=== PATIENT | female | born 1945 | race Caucasian/White ===

== ENCOUNTER → 2017-11-01 | Outpatient (CLI) | payer MEDICARE ==
[2017-11-01 10:25] LABS: ABSOLUTE LYMPHOCYTES (AUTO) 1.5 10^3/uL (0.5-4.7); ABSOLUTE MONOCYTES (AUTO) 0.5 10^3/uL (0.1-1.4); ABSOLUTE NEUT (AUTO) 3.2 10^3/uL (1.7-8.2); BASOPHILS % (AUTO) 0.1 % (0-2); HEMATOCRIT 29.8 % (36.0-47.0); HEMOGLOBIN 9.9 g/dL (12.0-15.5); LYMPHOCYTES % (AUTO) 29.1 % (13-45); MEAN CORPUSCULAR HEMOGLOBIN 24.4 pg (27.0-33.4); MEAN CORPUSCULAR HGB CONC 33.3 g/dL (32.0-36.0); MEAN CORPUSCULAR VOLUME 73 fl (80-97); MONOCYTES % (AUTO) 10.2 % (3-13); PLATELET COUNT 322 10^3/uL (150-450); RED BLOOD COUNT 4.06 10^6/uL (3.72-5.28); RED CELL DISTRIBUTION WIDTH 15.6 % (11.5-14.0); SEGMENTED NEUTROPHILS % (AUTO) 60.6 % (42-78); TOTAL CELLS COUNTED % (AUTO) 100 %; WHITE BLOOD COUNT 5.3 10^3/uL (4.0-10.5)
[2017-11-01 10:57] LABS: ANION GAP 8 (5-19); BLOOD UREA NITROGEN 23 mg/dL (7-20); CALCIUM 9.4 mg/dL (8.4-10.2); CARBON DIOXIDE 27 mmol/L (22-30); CHLORIDE 100 mmol/L (98-107); GLUCOSE 158 mg/dL (75-110); IRON(TIBC) 36.5 ug/dL (37-170); POTASSIUM 4.5 mmol/L (3.6-5.0); SODIUM 134.8 mmol/L (137-145)
[2017-11-02 17:08] LABS: URINE CREATININE 46.4 mg/dL (15-278); URINE PROTEIN 138.6 mg/dL (<12)
== END ==
LOC: OD 09:39
PROVIDERS: ATTEND Internal Medicine Nephrology
DX: N18.4 Chronic kidney disease, stage 4 (severe) (principal); D50.9 Iron deficiency anemia, unspecified; E55.9 Vitamin D deficiency, unspecified; N25.81 Secondary hyperparathyroidism of renal origin
CPT/HCPCS: 36415; 80048; 82306; 82570; 82728; 83540; 83550; 83970; 84156; 85025

== ENCOUNTER → 2017-12-27 | Outpatient (CLI) | payer MEDICARE ==
[2017-12-27 16:58] LABS: ANION GAP 9 (5-19); BLOOD UREA NITROGEN 27 mg/dL (7-20); CALCIUM 9.2 mg/dL (8.4-10.2); CARBON DIOXIDE 29 mmol/L (22-30); CHLORIDE 98 mmol/L (98-107); GLUCOSE 186 mg/dL (75-110); POTASSIUM 4.2 mmol/L (3.6-5.0); SODIUM 136.1 mmol/L (137-145)
== END ==
LOC: OD 15:19
PROVIDERS: ATTEND Internal Medicine Nephrology
DX: N18.4 Chronic kidney disease, stage 4 (severe) (principal); R60.0 Localized edema
CPT/HCPCS: 36415; 80048

== ENCOUNTER → 2018-01-31 | Outpatient (CLI) | payer MEDICARE ==
[2018-01-31 16:18] LABS: ABSOLUTE LYMPHOCYTES (AUTO) 1.7 10^3/uL (0.5-4.7); ABSOLUTE MONOCYTES (AUTO) 0.5 10^3/uL (0.1-1.4); ABSOLUTE NEUT (AUTO) 3.1 10^3/uL (1.7-8.2); EOSINOPHILS % (AUTO) 0.2 % (0-6); HEMATOCRIT 30.2 % (36.0-47.0); HEMOGLOBIN 9.8 g/dL (12.0-15.5); LYMPHOCYTES % (AUTO) 31.8 % (13-45); MEAN CORPUSCULAR HEMOGLOBIN 23.7 pg (27.0-33.4); MEAN CORPUSCULAR HGB CONC 32.3 g/dL (32.0-36.0); MEAN CORPUSCULAR VOLUME 73 fl (80-97); MONOCYTES % (AUTO) 8.8 % (3-13); PLATELET COUNT 302 10^3/uL (150-450); RED BLOOD COUNT 4.12 10^6/uL (3.72-5.28); RED CELL DISTRIBUTION WIDTH 15.5 % (11.5-14.0); SEGMENTED NEUTROPHILS % (AUTO) 59.2 % (42-78); TOTAL CELLS COUNTED % (AUTO) 100 %; WHITE BLOOD COUNT 5.3 10^3/uL (4.0-10.5)
[2018-01-31 16:31] LABS: ANION GAP 14 (5-19); BLOOD UREA NITROGEN 32 mg/dL (7-20); CALCIUM 9.1 mg/dL (8.4-10.2); CARBON DIOXIDE 26 mmol/L (22-30); CHLORIDE 99 mmol/L (98-107); GLUCOSE 152 mg/dL (75-110); IRON 33.4 ug/dL (37-170); SODIUM 138.8 mmol/L (137-145)
[2018-02-01 08:37] LABS: IRON(TIBC) 33.4 ug/dL (37-170)
[2018-02-01 17:43] LABS: UR PRO/CREAT RATIO RESULT 3.7 mg/mg (0.0-0.2); URINE PROTEIN 262.5 mg/dL (<12)
== END ==
LOC: OD 15:20
PROVIDERS: ATTEND Internal Medicine Nephrology
DX: N18.4 Chronic kidney disease, stage 4 (severe) (principal); N25.81 Secondary hyperparathyroidism of renal origin; E55.9 Vitamin D deficiency, unspecified; D50.9 Iron deficiency anemia, unspecified
CPT/HCPCS: 36415; 80048; 82306; 82570; 82728; 83540; 83550; 83970; 84156; 85025

== ENCOUNTER → 2018-05-18 | Outpatient (CLI) | payer MEDICARE ==
[2018-05-18 13:58] LABS: ALBUMIN 3.7 g/dL (3.5-5.0); ANION GAP 12 (5-19); BLOOD UREA NITROGEN 45 mg/dL (7-20); CALCIUM 9.1 mg/dL (8.4-10.2); CARBON DIOXIDE 28 mmol/L (22-30); CHLORIDE 95 mmol/L (98-107); GLUCOSE 189 mg/dL (75-110); SODIUM 134.8 mmol/L (137-145)
[2018-05-19 11:40] LABS: CREATININE URINE 46.7 mg/dL (Not Estab.)
== END ==
LOC: OD 12:16
PROVIDERS: ATTEND Internal Medicine Nephrology
DX: N18.4 Chronic kidney disease, stage 4 (severe) (principal); E11.22 Type 2 diabetes mellitus with diabetic chronic kidney disease; E11.21 Type 2 diabetes mellitus with diabetic nephropathy
CPT/HCPCS: 36415; 80048; 82040; 82043; 82570

== ENCOUNTER 2018-07-30 00:43 | Emergency (ER) | payer MEDICARE ==
--- NOTE | 2018-07-30 01:19 | ER Document Report ---
ED General - General Chief Complaint: High Blood Pressure Stated Complaint: BLOOD PRESSURE ISSUES Time Seen by Provider: 07/30/18 01:16 Notes: Patient is a pleasant 73-year-old female presents with complaint of high blood pressure. She has no symptoms associate with a high blood pressure. No headache. No chest pain. No shortness of breath. No focal weakness or numbness. Patient says he went to the eye doctor today. They gave her drops to dilate her eyes. At the end of her visit they checked her blood pressure and realized it was high told her to come to the ER for blood pressure remained high tonight. Tonight she checked her blood pressure and systolically was in the 200s and therefore she came to the ER. Now her blood pressure is down to the 170s systolically. She has no other complaints at this time. She currently is on losartan. She also takes furosemide. She also takes atenolol and diltiazem. She says typically her blood pressures run systolically in the 140s and diastolically in the 70s. TRAVEL OUTSIDE OF THE [place] IN LAST 30 DAYS: No - Related Data Allergies/Adverse Reactions: epinephrine [Epinephrine] Allergy (Severe, Verified 05/14/13 12:19) SEVERE CHEST PAIN Sulfa (Sulfonamide Antibiotics) Allergy (Unknown, Verified 05/14/13 12:19) CHILDHOOD ciprofloxacin [From Cipro] Allergy (Verified 05/14/13 12:19) TENDONITIS levofloxacin [From Levaquin] Allergy (Verified 05/14/13 12:19) TENDONITIS BILAT LEGS Past Medical History - Social History Smoking Status: Never Smoker Frequency of alcohol use: None Drug Abuse: None Family History: Reviewed & Not Pertinent - Past Medical History Cardiac Medical History: Reports: Hx Hypertension - MEDICATION Denies: Hx Heart Attack Pulmonary Medical History: Denies: Hx Asthma Neurological Medical History: Denies: Hx Cerebrovascular Accident, Hx Seizures Endocrine Medical History: Reports: Hx Diabetes Mellitus Type 2 GI Medical History: Denies: Hx Hepatitis, Hx Hiatal Hernia, Hx Ulcer Infectious Medical History: Denies: Hx Hepatitis Past Surgical History: Reports: Hx Orthopedic Surgery - left wrist. Denies: Hx Mastectomy, Hx Open Heart Surgery, Hx Pacemaker - Immunizations Hx Diphtheria, Pertussis, Tetanus Vaccination: No - unknown Review of Systems - Review of Systems Notes: My Normal Review Basic REVIEW OF SYSTEMS: CONSTITUTIONAL : Denies fever, chills, or sweats. Denies recent illness. EENT: Denies eye, ear, throat, or mouth pain or symptoms. Denies nasal or sinus congestion. CARDIOVASCULAR: Denies chest pain. RESPIRATORY: Denies cough, cold, or chest congestion. Denies shortness of breath, difficulty breathing, or wheezing. GASTROINTESTINAL: Denies abdominal pain. Denies nausea, vomiting, or diarrhea. MUSCULOSKELETAL: Denies neck or back pain or joint pain or swelling. SKIN: Denies rash or skin lesions. NEUROLOGICAL: Denies altered mental status or loss of consciousness. Denies headache. Denies weakness or paralysis or loss of use of either side. Denies problems with gait or speech. Denies sensory or motor loss. ALL OTHER SYSTEMS REVIEWED AND NEGATIVE. Physical Exam - Vital signs Vitals: Temp Pulse Resp BP Pulse Ox 97.5 F 52 L 18 181/77 H 99 07/30/18 00:43 07/30/18 00:43 07/30/18 00:43 07/30/18 00:43 07/30/18 00:43 - Notes Notes: General Appearance: Well nourished, alert, cooperative, no acute distress, no obvious discomfort. Well-appearing. Vitals: reviewed, See vital signs table. Head: no swelling or tenderness to the head Eyes: PERRL, EOMI, Conjuctiva clear Lungs: No wheezing, No rales, No rhonci, No accessory muscle use, good air exchange bilaterally. Heart: Normal rate, Regular rythm, No murmur, no rub Extremities: strength 5/5 in all extremities, good pulses in all extremities, no swelling or tenderness in the extremities, plus pedal edema. Skin: warm, dry, appropriate color, no rash Neuro: speech clear, oriented x 3, normal affect, responds appropriately to questions. Cranial nerves II through XII are intact. Distal sensation intact. Patient moves all extremities without difficulty. Course - Re-evaluation Re-evalutation: 07/30/18 01:39 She is blood pressure is improving. I suspect that her increased blood pressure is related to the dilating eyedrops that she received at the eye doctor 's office. She is completely asymptomatic with her hypertension. I feel she is safe to be discharged home. She has a follow-up appointment with her physician on Wednesday. Encouraged her return to ER if she has recurrent worsening high blood pressure, any headache, any chest pain, any difficulty breathing, or any weakness or numbness in her extremities. Patient agrees with plan will be discharged home. Dictation of this chart was performed using voice recognition software; therefore, there may be some unintended grammatical errors. - Vital Signs Vital signs: Temp Pulse Resp BP Pulse Ox 97.5 F 48 L 18 162/78 H 100 07/30/18 00:43 07/30/18 01:26 07/30/18 01:26 07/30/18 01:26 07/30/18 01:26 Discharge - Discharge Clinical Impression: High blood pressure Qualifiers: Hypertension type: unspecified Qualified Code(s): I10 - Essential (primary) hypertension Condition: Good Disposition: HOME, SELF-CARE Additional Instructions: I suspect the increase in your blood pressure today is related to the dilating drops you were given. Your blood pressure should continue to improve over the next 8 hours. Please return to [facility] ER immediately if you develop chest pain, difficulty breathing, severe headache, or feel unwell. Referrals: BENITO DOUGLAS FNP [Primary Care Provider] - 08/01/18
[2018-07-30 01:26] VITALS: BP 162/78
== END 2018-07-30 01:26 | disposition home or self-care (01) ==
LOC: ER 00:43
DX: I10 Essential (primary) hypertension (principal); Z88.2 Allergy status to sulfonamides; Z88.3 Allergy status to other anti-infective agents; E11.9 Type 2 diabetes mellitus without complications
CPT/HCPCS: 99284

== ENCOUNTER 2018-10-04 11:49 | Inpatient (IN) | payer MEDICARE ==
--- NOTE | 2018-10-04 12:57 | ER Document Report ---
ED Medical Screen (RME) - General Chief Complaint: Shortness Of Breath Stated Complaint: SHORTNESS OF BREATH Time Seen by Provider: 10/04/18 12:50 Primary Care Provider: BENITO DOUGLAS FNP [Primary Care Provider] - Follow up as needed Mode of Arrival: Wheelchair Information source: Patient Notes: This is a 73-year-old female with a history of diabetes, hypertension, chronic kidney disease who presents to the emergency room with shortness of breath (worse with lying down), increasing right lower extremity swelling. TRAVEL OUTSIDE OF THE [place] IN LAST 30 DAYS: No - Related Data Allergies/Adverse Reactions: epinephrine [Epinephrine] Allergy (Severe, Verified 10/04/18 11:50) SEVERE CHEST PAIN Sulfa (Sulfonamide Antibiotics) Allergy (Unknown, Verified 10/04/18 11:50) CHILDHOOD ciprofloxacin [From Cipro] Allergy (Verified 10/04/18 11:50) TENDONITIS levofloxacin [From Levaquin] Allergy (Verified 10/04/18 11:50) TENDONITIS BILAT LEGS Past Medical History - Past Medical History Cardiac Medical History: Reports: Hx Hypertension - MEDICATION Denies: Hx Heart Attack Pulmonary Medical History: Denies: Hx Asthma Neurological Medical History: Denies: Hx Cerebrovascular Accident, Hx Seizures Endocrine Medical History: Reports: Hx Diabetes Mellitus Type 2 Renal/ Medical History: Denies: Hx Peritoneal Dialysis GI Medical History: Denies: Hx Hepatitis, Hx Hiatal Hernia, Hx Ulcer Infectious Medical History: Denies: Hx Hepatitis Past Surgical History: Reports: Hx Orthopedic Surgery - left wrist. Denies: Hx Mastectomy, Hx Open Heart Surgery, Hx Pacemaker - Immunizations Hx Diphtheria, Pertussis, Tetanus Vaccination: No - unknown Physical Exam - Vital signs Vitals: Temp Pulse Resp BP Pulse Ox 97.8 F 51 L 20 199/77 H 96 10/04/18 12:14 10/04/18 12:14 10/04/18 12:14 10/04/18 12:14 10/04/18 12:14 Course - Vital Signs Vital signs: Temp Pulse Resp BP Pulse Ox 97.8 F 51 L 20 199/77 H 96 10/04/18 12:14 10/04/18 12:14 10/04/18 12:14 10/04/18 12:14 10/04/18 12:14 Doctor's Discharge - Discharge Referrals: STELLA,BENITO, MORTAR MAN [Primary Care Provider] - Follow up as needed
[2018-10-04 13:29] LABS: ABSOLUTE LYMPHOCYTES (AUTO) 0.9 10^3/uL (0.5-4.7); ABSOLUTE MONOCYTES (AUTO) 0.4 10^3/uL (0.1-1.4); ABSOLUTE NEUT (AUTO) 3.4 10^3/uL (1.7-8.2); BASOPHILS % (AUTO) 0.2 % (0-2); HEMOGLOBIN 9.9 g/dL (12.0-15.5); LYMPHOCYTES % (AUTO) 19.3 % (13-45); MEAN CORPUSCULAR HEMOGLOBIN 25.6 pg (27.0-33.4); MEAN CORPUSCULAR HGB CONC 33.1 g/dL (32.0-36.0); MEAN CORPUSCULAR VOLUME 77 fl (80-97); MONOCYTES % (AUTO) 8.5 % (3-13); PLATELET COUNT 334 10^3/uL (150-450); RED BLOOD COUNT 3.87 10^6/uL (3.72-5.28); RED CELL DISTRIBUTION WIDTH 16.2 % (11.5-14.0); TOTAL CELLS COUNTED % (AUTO) 100 %; WHITE BLOOD COUNT 4.7 10^3/uL (4.0-10.5)
--- NOTE | 2018-10-04 14:17 | RADIOLOGY REPORT (SQ) ---
EXAM DESCRIPTION: CHEST SINGLE VIEW COMPLETED DATE/TIME: 10/04/2018 2:07 pm REASON FOR STUDY: sob COMPARISON: 09/05/2016 EXAM PARAMETERS: NUMBER OF VIEWS: One view. TECHNIQUE: Single frontal radiographic view of the chest acquired. RADIATION DOSE: NA LIMITATIONS: None. FINDINGS: LUNGS AND PLEURA: Bilateral pleural effusions. Basilar opacities. MEDIASTINUM AND HILAR STRUCTURES: No masses. Contour normal. HEART AND VASCULAR STRUCTURES: Heart enlarged. Vascular congestion. BONES: No acute findings. HARDWARE: None in the chest. OTHER: No other significant finding. IMPRESSION: Vascular congestion. Bilateral pleural effusions. TECHNICAL DOCUMENTATION: JOB ID: [id number] [employer]- All Rights Reserved Reading location - IP/workstation name: [email or web address]
--- NOTE | 2018-10-04 14:40 | ER Document Report ---
ED General - General Chief Complaint: Shortness Of Breath Stated Complaint: SHORTNESS OF BREATH Time Seen by Provider: 10/04/18 12:50 Mode of Arrival: Wheelchair Notes: This is a 73-year-old female to the emergency department chief complaint of lower extremity edema mostly on the right lower extremity as well as increased shortness of breath. Patient followed by Dr. Bates with nephrology. Has diabetes, hypertension. Has renal failure. Seems to be getting worse. Is recently increased her dosages of Lasix but still has shortness of breath and worsening edema to the right lower extremities. Denies any other major symptoms at this time. No pain. TRAVEL OUTSIDE OF THE [place] IN LAST 30 DAYS: No - HPI Onset/Duration: Gradual Quality of pain: No pain Severity: Moderate Associated symptoms: Leg swelling, Shortness of breath Exacerbated by: Supine, Movement, Walking Relieved by: Denies - Related Data Allergies/Adverse Reactions: Sulfa (Sulfonamide Antibiotics) Allergy (Unknown, Verified 10/04/18 11:50) CHILDHOOD ciprofloxacin [From Cipro] Allergy (Verified 10/04/18 11:50) TENDONITIS levofloxacin [From Levaquin] Allergy (Verified 10/04/18 11:50) TENDONITIS BILAT LEGS Past Medical History - General Information source: Patient - Social History Smoking Status: Former Smoker Drug Abuse: None Lives with: Alone Family History: Reviewed & Not Pertinent Patient has suicidal ideation: No Patient has homicidal ideation: No - Past Medical History Cardiac Medical History: Reports: Hx Hypertension - MEDICATION Denies: Hx Heart Attack Pulmonary Medical History: Denies: Hx Asthma Neurological Medical History: Denies: Hx Cerebrovascular Accident, Hx Seizures Endocrine Medical History: Reports: Hx Diabetes Mellitus Type 2 Renal/ Medical History: Denies: Hx Peritoneal Dialysis GI Medical History: Denies: Hx Hepatitis, Hx Hiatal Hernia, Hx Ulcer Infectious Medical History: Denies: Hx Hepatitis Past Surgical History: Reports: Hx Orthopedic Surgery - left wrist. Denies: Hx Mastectomy, Hx Open Heart Surgery, Hx Pacemaker - Immunizations Hx Diphtheria, Pertussis, Tetanus Vaccination: No - unknown Review of Systems - Review of Systems Notes: Constitutional: denies: Chills, Diaphoresis, Fever, Malaise, Weakness EENT: denies: Eye discharge, Blurred vision, Tearing, Double vision, Nose congestion, Nose discharge, Throat swelling, Mouth pain Cardiovascular: denies: Palpitations, Heart racing, Orthopnea, Dyspnea, Chest pain Respiratory: denies: Cough, Hurts to breathe, Wheezing,. Complains of shortness of breath Gastrointestinal: denies: Abdominal pain, Diarrhea, Nausea, Vomiting, Black stools, bright red blood in stool Genitourinary: denies: Burning, Dysuria, Discharge, Frequency, Flank pain, Hematuria Musculoskeletal: denies: Joint pain, Joint swelling, Muscle pain, Muscle stiffness, back pain. Complains of lower extremity edema Hematologic/Lymphatic: denies: Anemia, Easy bleeding, Easy bruising, Blood clots Neurological/Psychological: denies: Confusion, Dementia, Depression, Loss of consciousness Skin: No lesions, no masses, no skin breakdown, no abscesses Physical Exam - Vital signs Vitals: Temp Pulse Resp BP Pulse Ox 97.8 F 51 L 20 199/77 H 96 10/04/18 12:14 10/04/18 12:14 10/04/18 12:14 10/04/18 12:14 10/04/18 12:14 Interpretation: Normal - General General appearance: Appears well, Alert - HEENT Head: Normocephalic, Atraumatic Eyes: Normal Pupils: PERRL - Respiratory Respiratory status: No respiratory distress Chest status: Nontender Breath sounds: Normal Chest palpation: Normal - Cardiovascular Rhythm: Regular Heart sounds: Normal auscultation Murmur: No - Abdominal Inspection: Normal Distension: No distension Bowel sounds: Normal Tenderness: Nontender Organomegaly: No organomegaly - Back Back: Normal, Nontender - Extremities General upper extremity: Normal inspection, Nontender, Normal color, Normal ROM, Normal temperature General lower extremity: Normal inspection, Nontender, Edema, Normal color, Normal ROM, Normal temperature, Normal weight bearing. No: Dannie's sign - Neurological Neuro grossly intact: Yes Cognition: Normal Orientation: AAOx4 Emilee Coma Scale Eye Opening: Spontaneous Hamilton Coma Scale Verbal: Oriented Emilee Coma Scale Motor: Obeys Commands Hamilton Coma Scale Total: 15 Speech: Normal Motor strength normal: LUE, RUE, LLE, RLE Sensory: Normal - Psychological Associated symptoms: Normal affect, Normal mood - Skin Skin Temperature: Warm Skin Moisture: Dry Skin Color: Normal Course - Re-evaluation Re-evalutation: 10/04/18 22:21 Patient has lower extremity edema, malignant hypertension and worsening renal failure. Patient needs to be admitted for this at this time. Will consult with hospitalist for admission. Of note patient does have slightly elevated cardiac troponin but worsening renal failure. Patient denies any chest pain. Patient will need to be observed at least for that as well with repeat troponins. 10/04/18 22:22 - Vital Signs Vital signs: Temp Pulse Resp BP Pulse Ox 97.6 F 51 L 16 201/83 H 96 10/04/18 20:01 10/04/18 12:14 10/04/18 20:31 10/04/18 20:31 10/04/18 20:31 - Laboratory Result Diagrams: 10/04/18 13:10 10/04/18 14:15 Laboratory results interpreted by me: 10/04/18 10/04/18 13:10 14:15 Hgb 9.9 L Hct 30.0 L MCV 77 L MCH 25.6 L RDW 16.2 H Sodium 133.6 L Potassium 3.5 L Chloride 96 L BUN 44 H Creatinine 3.16 H Est GFR ( Amer) 18 L Est GFR (Non-Af Amer) 14 L Glucose 187 H - EKG Interpretation by Nm EKG shows normal: Sinus rhythm, [place], Intervals, QRS Complexes, ST-T Waves Voltage: Consistant with [facility] Critical Care Note - Critical Care Note Total time excluding time spent on procedures (mins): 35 Comments: Malignant hypertension, elevated cardiac troponin, renal failure Discharge - Discharge Clinical Impression: Unilateral edema of lower extremity, Hypertensive emergency Acute on chronic renal failure Qualifiers: Acute renal failure type: unspecified Chronic kidney disease stage: unspecified stage Qualified Code(s): N17.9 - Acute kidney failure, unspecified Condition: Good Disposition: ADMITTED INPATIENT Admitting Provider: Hospitalist - [facility] Admitted: Telemetry
[2018-10-04 14:42] LABS: ALANINE AMINOTRANSFERASE 15 U/L (9-52); ALKALINE PHOSPHATASE 89 U/L (38-126); ANION GAP 10 (5-19); ASPARTATE AMINO TRANSFERASE 19 U/L (14-36); BILIRUBIN,DIRECT 0.4 mg/dL (0.0-0.4); BILIRUBIN,TOTAL 0.7 mg/dL (0.2-1.3); BLOOD UREA NITROGEN 44 mg/dL (7-20); CARBON DIOXIDE 28 mmol/L (22-30); CHLORIDE 96 mmol/L (98-107); CREATINE KINASE 101 U/L (30-135); GLUCOSE 187 mg/dL (75-110); POTASSIUM 3.5 mmol/L (3.6-5.0); SODIUM 133.6 mmol/L (137-145); TOTAL PROTEIN 7.1 g/dL (6.3-8.2)
[2018-10-04 15:14] LABS: CREATINE KINASE MB 1.61 ng/mL (<4.55)
[2018-10-04 15:16] LABS: TROPONIN I 0.047 ng/mL
--- NOTE | 2018-10-04 15:36 | RADIOLOGY REPORT (SQ) ---
EXAM DESCRIPTION: VENOUS UNILATERAL LOWER COMPLETED DATE/TIME: 10/04/2018 3:24 pm REASON FOR STUDY: rle swelling COMPARISON: None. TECHNIQUE: Dynamic and static wiley scale and color images acquired of the right leg venous system. S elected spectral images acquired with additional compression and augmentation maneuvers. The contrala teral common femoral vein and saphenofemoral junction were also imaged. Images stored on PACS. LIMITATIONS: None. FINDINGS: COMMON FEMORAL: Normal phasicity, compression and augmentation. No visualized echogenic ma terial on wiley scale. No defects on color images. FEMORAL: Normal compression and augmentation. No visualized echogenic material on wiley scale. No defe cts on color images. POPLITEAL: Normal compression, augmentation. No visualized echogenic material on wiley scale. No defec ts on color images. CALF VESSELS: Normal compression, augmentation. No visualized echogenic material on wiley scale. No de fects on color images. GSV and SSV: Normal compression, augmentation. No visualized echogenic material on wiley scale. No def ects on color images. ANY DEEP VENOUS INSUFFICIENCY: Not evaluated. ANY EVIDENCE OF POPLITEAL CYST: No. OTHER: No other significant finding. CONTRALATERAL COMMON FEMORAL VEIN AND SAPHENOFEMORAL JUNCTION: Normal phasicity, compression and augmentation. No visualized echogenic material on wiley scale. No de fects on color images. IMPRESSION: NO EVIDENCE DVT OR SVT IN THE RIGHT LEG. TECHNICAL DOCUMENTATION: JOB ID: [id number] [employer]- All Rights Reserved Reading location - IP/workstation name: [email or web address]
[2018-10-04] MEDS ORDERED: FUROSEMIDE INJ/PF 20 MG/2 ML SDV IV ONE (15:46)
[2018-10-04] MEDS ORDERED: NORMAL SALINE 1000 ML 1,000 ML IV PRN (18:15)
[2018-10-04] MEDS ORDERED: ACETAMINOPHEN 325 MG TABLET PO PRN (18:15)
[2018-10-04] MEDS ORDERED: ONDANSETRON HCL INJ/PF 4 MG/2 ML SDV IV PRN (18:15)
[2018-10-04] MEDS ORDERED: IPRATROPIUM/ALBUTEROL 0.5-2.5 MG/3 ML AMPUL NEB PRN (18:15)
[2018-10-04] MEDS ORDERED: GLUCAGON,HUMAN RECOMB 1 MG INJ IM PRN (18:36)
[2018-10-04] MEDS ORDERED: DEXTROSE 50%-WATER 25 GM/50 ML DISP.SYRIN IV PRN ×2 (18:36)
[2018-10-04] MEDS ORDERED: DEXTROSE 40% GEL 15 GM TUBE PO PRN ×2 (18:36)
--- NOTE | 2018-10-04 18:37 | PDOC H&P ---
History of Present Illness Admission Date/PCP: 10/04/18 16:32 SRINIVASA BROWER History of Present Illness: ARCHANA QUINN is a 73 year old female with a past medical history of hyper tension, diabetes type 2, chronic anemia, who presented to the ED complaining of shortness of breath and lower extremity swelling. She is not a very good historian but son and daughter in the room did feel in for some of her information. Patient states for the last few days she has been getting pr ogressively short of breath and also noticed some swelling in her lower extremity. Patient states she does not have a history of heart failure and she was not sure why her legs are getting swollen. She states that sometimes she does get short of breath when she lays down versus sitting up. She cannot admit or deny whether she coughs more with laying down. She denies any recent long trips in the car or plane. She denies any calf pain, chest pain, abdominal pain, nausea/vomiting or dizziness. She states that she takes all her medicines on time and has not missed any doses. She denies any excessive intake of water or salt intake. Although family states that she does like eating [employer] and salty food. She does take Lasix at home she tells me about 40 mg daily and she believes this is due to her lower extremity swelling from the past. She denies any history of heart failure. She does have a history of renal failure and follows with Dr. Bates Past Medical History Cardiac Medical History: Reports: Hypertension - MEDICATION Denies: Myocardial Infarction Pulmonary Medical History: Denies: Asthma Neurological Medical History: Denies: Seizures Endocrine Medical History: Reports: Diabetes Mellitus Type 2 GI Medical History: Denies: Hepatitis, Hiatal Hernia Hematology: Reports: Anemia - DURING MENOPAUSE Denies: Sickle Cell Disease Past Surgical History Past Surgical History: Reports: Orthopedic Surgery - left wrist Denies: Amputation, Mastectomy, Pacemaker Social History Information Source: Patient, Relative - Son and daughter in the room Smoking Status: Never Smoker Frequency of Alcohol Use: None Hx Recreational Drug Use: No Drugs: None Hx Prescription Drug Abuse: No - Advance Directive Resuscitation Status: Full Code Family History Family History: Reviewed & Not Pertinent Parental Family History Reviewed: Yes Children Family History Reviewed: Unknown Sibling(s) Family History Reviewed.: Unknown Medication/Allergy Home Medications: Aspirin [Ecotrin 325 mg EC Tablet] 325 mg PO DAILY 10/04/18 Atenolol [Tenormin] 25 mg PO DAILY 10/04/18 Calcifediol [Rayaldee] 30 mg PO QHS 10/04/18 Diltiazem HCl [Diltiazem 24Hr ER] 300 mg PO QHS 10/04/18 Ferrous Sulfate [Feosol 325 mg Tablet] 325 mg PO DAILY 10/04/18 Furosemide [Lasix 40 mg Tablet] 40 mg PO .1 HOUR PC AM MEDS 10/04/18 Insulin Aspart [Novolog Flexpen] 0 unit SQ .SLIDING SCALE 10/04/18 Insulin Glargine,Hum.rec.anlog [Lantus Insulin 100 Unit/mL] 14 units SQ QHS 10/04/18 Levothyroxine Sodium [Synthroid] 137 mcg PO Q6AM 10/04/18 Metformin HCl [Glucophage 500 mg Tablet] 500 mg PO DAILY 10/04/18 Telmisartan/Hydrochlorothiazid [Telmisartan-Hctz 80-25 mg Tab] 1 tab PO DAILY 10/04/18 Allergies/Adverse Reactions: Sulfa (Sulfonamide Antibiotics) Allergy (Unknown, Verified 10/04/18 11:50) CHILDHOOD ciprofloxacin [From Cipro] Allergy (Verified 10/04/18 11:50) TENDONITIS levofloxacin [From Levaquin] Allergy (Verified 10/04/18 11:50) TENDONITIS BILAT LEGS Review of Systems All systems: reviewed and no additional remarkable complaints except as stated Constitutional: ABSENT: chills, fever(s) Eyes: ABSENT: visual disturbances Ears: ABSENT: hearing changes Cardiovascular: PRESENT: edema - Bilateral lower extremity right greater than left. ABSENT: chest pain Respiratory: ABSENT: cough, dyspnea Gastrointestinal: ABSENT: abdominal pain, nausea, vomiting Genitourinary: ABSENT: dysuria Neurological: ABSENT: focal weakness, syncope, tremor(s) Endocrine: ABSENT: polyphagia, polyuria Hematologic/Lymphatic: ABSENT: easy bruising Physical Exam Vital Signs: Temp Pulse Resp BP Pulse Ox 97.8 F 51 L 15 213/100 H 100 10/04/18 12:14 10/04/18 12:14 10/04/18 16:01 10/04/18 16:01 10/04/18 16:01 Intake & Output 10/03/18 10/04/18 10/05/18 06:59 06:59 06:59 Weight 203 lb 4.259 oz General appearance: PRESENT: no acute distress Head exam: PRESENT: atraumatic, normocephalic Eye exam: PRESENT: EOMI. ABSENT: conjunctival injection, scleral icterus Ear exam: PRESENT: normal external ear exam Mouth exam: PRESENT: tongue midline Neck exam: ABSENT: tracheal deviation Respiratory exam: PRESENT: clear to auscultation lalitha, symmetrical Cardiovascular exam: PRESENT: +S1, +S2 Pulses: PRESENT: +2 pedal pulses bilateral GI/Abdominal exam: PRESENT: normal bowel sounds, soft. ABSENT: tenderness Extremities exam: PRESENT: other - Bilateral lower extremity edema right greater than left-2-3+ mostly pedal up to mid mackenzie Neurological exam: PRESENT: alert, awake, oriented to person, oriented to place, oriented to time, oriented to situation, CN II-XII grossly intact Skin exam: PRESENT: dry, warm Results Laboratory Results: 10/04/18 13:10 10/04/18 14:15 10/04/18 10/04/18 10/04/18 13:10 13:10 14:15 WBC 4.7 RBC 3.87 Hgb 9.9 L Hct 30.0 L MCV 77 L MCH 25.6 L MCHC 33.1 RDW 16.2 H Plt Count 334 Seg Neutrophils % 72.0 Lymphocytes % 19.3 Monocytes % 8.5 Eosinophils % 0.0 Basophils % 0.2 Absolute Neutrophils 3.4 Absolute Lymphocytes 0.9 Absolute Monocytes 0.4 Absolute Eosinophils 0.0 Absolute Basophils 0.0 Sodium Cancelled 133.6 L Potassium Cancelled 3.5 L Chloride Cancelled 96 L Carbon Dioxide Cancelled 28 Anion Gap Cancelled 10 BUN Cancelled 44 H Creatinine Cancelled 3.16 H Est GFR ( Amer) Cancelled 18 L Est GFR (Non-Af Amer) Cancelled 14 L Glucose Cancelled 187 H Calcium Cancelled 9.0 Total Bilirubin Cancelled 0.7 AST Cancelled 19 ALT Cancelled 15 Alkaline Phosphatase Cancelled 89 Total Protein Cancelled 7.1 Albumin Cancelled 4.0 10/04/18 10/04/18 10/04/18 13:10 13:10 14:15 Creatine Kinase Cancelled 101 CK-MB (CK-2) Cancelled Troponin I Cancelled 10/04/18 14:26 Creatine Kinase CK-MB (CK-2) 1.61 Troponin I 0.047 Impressions: Chest X-Ray 10/04/18 12:56 IMPRESSION: Vascular congestion. Bilateral pleural effusions. Venous Doppler Study 10/04/18 12:56 IMPRESSION: NO EVIDENCE DVT OR SVT IN THE RIGHT LEG. Assessment & Plan - Diagnosis (1) Hypertensive emergency Is this a current diagnosis for this admission?: Yes Plan: In the ED he was found to have systolic blood pressure greater than 210. I have given her 1 dose of hydralazine IV 10 mg at this time. We will continue with her home medications once med reconciliation is done. Patient tells me that recently her doctor started her on hydralazine 25 mg twice daily for uncontrolled hypertension but she has not started the medicine yet. Depending on what medication patient is on at home I may choose to continue this same regimen of hydralazine 25 mg twice daily. At this time she is only on hydralazine IV as needed for systolic blood pressure greater than 160. We will try to lower her blood pressure slowly no more than 25% of the time. Fortunately she is not having any symptoms of chest pain, headaches, blurry vision or dizziness. She does have some shortness of breath but that could be related to heart failure which we are still to evaluate. (2) Bilateral lower extremity edema Is this a current diagnosis for this admission?: Yes Plan: Right extremity worse than left extremity. Unclear as to the cause although she is on Lasix at home. She does not know if he had a echocardiogram in the recent year but tells me she has had a long time ago. She tells me she does not have a history of heart failure. Will get echocardiogram at this time. ER did give her Lasix 20 mg IV at this time. We will continue home meds of Lasix 40 mg daily once the med reconciliation is done. Ultrasound of the lower extremity were already done in the ED and had shown no signs of DVT or SVT. (3) Hypertension Is this a current diagnosis for this admission?: Yes Plan: Med reconciliation is not done yet and I am still awaiting. See plan for hypertensive emergency. (4) Diabetes mellitus type 2 in nonobese Is this a current diagnosis for this admission?: Yes Plan: She is on Lantus and NovoLog at home. She tells me that she is on Lantus 14-20 units at night. We will start her on 14 units and put on sliding scale. We will check her A1c levels in the morning. (5) Acute on chronic renal failure Qualifiers: Acute renal failure type: unspecified Chronic kidney disease stage: unspecified stage Qualified Code(s): N17.9 - Acute kidney failure, unspecified; N18.9 - Chronic kidney disease, unspecified Is this a current diagnosis for this admission?: Yes Plan: Difficult to tell what her baseline creatinine is but today it is greater than 3. I have consulted nephrology as she follows with them outpatient. I will give her gentle hydration at 50 cc an hour with IV fluids and monitor her creatinine with repeat blood work. I do not want to give her too much fluid as she may have heart failure and this may exacerbate it. (6) Dyslipidemia Is this a current diagnosis for this admission?: Yes Plan: Noted (7) Chronic anemia Is this a current diagnosis for this admission?: Yes Plan: Hemoglobin is 9.9 at this time. Looking back at her past results she seems to be around 9-10 hemoglobin chronically. Monitor for bleed. Transfuse for hemoglobin less than 7 since she does not have a history of coronary artery disease that I know of. (8) Hyponatremia Is this a current diagnosis for this admission?: Yes Plan: Started on gentle IV hydration, most likely due to dehydration, will monitor for now. (9) Hypokalemia Is this a current diagnosis for this admission?: Yes Plan: We will replete as needed-we will give her 40MEQ potassium now - Time Time Spent: 50 to 70 Minutes - Inpatient Certification Based on my medical assessment, after consideration of the patient's comorbidities, presenting symptoms, or acuity I expect that the services needed warrant INPATIENT care.: Yes I certify that my determination is in accordance with my understanding of Medicare's requirements for reasonable and necessary INPATIENT services [42 CFR 412.3e].: Yes Medical Necessity: Significant Comorbidiites Make Outpatient Treatment Too Risky, Need Close Monitoring Due to Risk of Patient Decompensation, Need For Continuous Telemetry Monitoring, Risk of Complication if Not Cared For in Hospital
[2018-10-04] MEDS ORDERED: HYDRALAZINE HCL INJ/PF 20 MG/1 ML SDV IV ONE (18:45)
[2018-10-04] MEDS ORDERED: POTASSIUM CHLORIDE 10 MEQ CAPSULE.ER PO ONE (19:15)
--- NOTE | 2018-10-04 19:34 | EKG REPORT ---
SEVERITY:- ABNORMAL ECG - SINUS RHYTHM NONSPECIFIC INTRAVENTRICULAR CONDUCTION DELAY PROBABLE LVH WITH SECONDARY REPOL ABNRM : Confirmed by: Nani Medina MD 04-Oct-2018 19:33:41
[2018-10-04] MEDS ORDERED: INSULIN GLARGINE,HUM.REC.ANLOG 300 UNIT/3 ML INSULN.PEN SUBCUT SCH (22:00)
[2018-10-05] MEDS: HEPARIN SOD (PORCINE) 5,000 UNIT/ML 1 ML SYRINGE SUBCUT SCH ×4 (00:53→23:28)
[2018-10-05] MEDS: FAMOTIDINE 20 MG TABLET PO SCH ×3 (00:54→23:19)
[2018-10-05] MEDS: HYDRALAZINE HCL INJ/PF 20 MG/1 ML SDV IV PRN ×3 (00:55→18:40)
[2018-10-05 02:35] LABS: ABSOLUTE LYMPHOCYTES (AUTO) 0.8 10^3/uL (0.5-4.7); ABSOLUTE MONOCYTES (AUTO) 0.4 10^3/uL (0.1-1.4); ABSOLUTE NEUT (AUTO) 5.3 10^3/uL (1.7-8.2); BASOPHILS % (AUTO) 0.1 % (0-2); HEMATOCRIT 29.3 % (36.0-47.0); HEMOGLOBIN 9.7 g/dL (12.0-15.5); LYMPHOCYTES % (AUTO) 11.6 % (13-45); MEAN CORPUSCULAR HEMOGLOBIN 25.5 pg (27.0-33.4); MEAN CORPUSCULAR VOLUME 77 fl (80-97); MONOCYTES % (AUTO) 6.5 % (3-13); PLATELET COUNT 286 10^3/uL (150-450); RED CELL DISTRIBUTION WIDTH 16.5 % (11.5-14.0); SEGMENTED NEUTROPHILS % (AUTO) 81.8 % (42-78); TOTAL CELLS COUNTED % (AUTO) 100 %; WHITE BLOOD COUNT 6.5 10^3/uL (4.0-10.5)
[2018-10-05 02:45] LABS: ANION GAP 12 (5-19); BLOOD UREA NITROGEN 42 mg/dL (7-20); CALCIUM 9.2 mg/dL (8.4-10.2); CARBON DIOXIDE 26 mmol/L (22-30); CHLORIDE 98 mmol/L (98-107); GLUCOSE 202 mg/dL (75-110); POTASSIUM 3.8 mmol/L (3.6-5.0); SODIUM 136.2 mmol/L (137-145); TRIGLYCERIDES 95 mg/dL (<150)
[2018-10-05 02:56] LABS: DIRECT LDL 119 mg/dL (<100)
[2018-10-05] MEDS ORDERED: FUROSEMIDE 40 MG TABLET PO SCH (07:45)
[2018-10-05] MEDS: DOCUSATE SODIUM 100 MG CAPSULE PO SCH ×2 (09:47→17:36)
[2018-10-05] MEDS: ASPIRIN 325 MG TABLET, ENT COATED PO SCH (09:47)
[2018-10-05] MEDS ORDERED: ATENOLOL 50 MG TABLET PO SCH (10:00)
[2018-10-05] MEDS ORDERED: FERROUS SULFATE 325 MG TABLET PO SCH (10:00)
[2018-10-05] MEDS ORDERED: (PENDING PHARMACY ID) (Atenolol [Tenormin] 25 MG) PO SCH (10:00)
[2018-10-05] MEDS ORDERED: LOSARTAN POTASSIUM 50 MG TABLET PO SCH (10:00)
[2018-10-05] MEDS: INSULIN LISPRO 100 UNIT/ML 3 ML VIAL SUBCUT PRN ×2 (11:54→18:17)
--- NOTE | 2018-10-05 12:09 | PDOC CONSULTATION ---
Consultation Consult Date: 10/05/18 History of Present Illness Admission Date/PCP: 10/04/18 16:32 SRINIVASA BROWER History of Present Illness: ARCHANA QUINN is a 73 year old female with a past medical history of diabetes type 2, Hypertension, CKD stage IV/V with a base creatinine of 3-3.4, chronic anemia, who presented to the ED complaining of Progressive shortness of breath on exertion for the last 1-2 weeks along with progressive anemia right more than left ultimately culminating in orthopnea. She denies any complaints of any chest pains or leg pains. No history of any prolonged immobilization. She admits to having intermittent high sodium diet. She denies noncompliance with her medications.She denies any history of CAD, CHF, CVA. Evaluations in the ER revealed that she has congestive heart failure and was treated with IV diuretics. She has had a ultrasound of her legs that was negative for any DVT. Currently she is feeling better. She is able to talk with me sitting up without having to stop and pause. Her son is at the bedside who feels that she has definitely improved. Her blood sugars have been fairly well controlled but on further questioning she has had persistent nocturnal hypoglycemia in the early hours of the morning for the last 1 month. Initially her Lantus was 20 units q hs and then she on her own cut it back to 16 units but still the symptoms have persisted. She has had to call her daughter in law for quick relief of her symptoms where she drinks the juice or eat something every day and early in the morning.She has been trying to get to see her sequins slinger but has not made any attempts to reach schedule or call her primary care for further guidance on this persistent issue. She is also had chronic anemia and was diagnosed to have iron deficiency a few months ago by Dr Bates and was advised to get IV iron infusion but she has refused because of inconvenience. She admits to fecal incontinence but denies its diarrhea and has been going on for quite some time. No history of an abdominal pains or GI bleeds. No history of being on any NSAIDs.No symptoms to indicate uremia. Past Medical History Cardiac Medical History: Reports: Hypertension-primary Denies: Myocardial Infarction Pulmonary Medical History: Denies: Asthma Neurological Medical History: Denies: Seizures Endocrine Medical History: Reports: Diabetes Mellitus Type 2 Renal/ Medical History: Reports: Chronic Kidney Disease Stage IV, Secondary Hyperparathyroidism GI Medical History: Denies: Hepatitis, Hiatal Hernia Hematology Medical History: Reports Iron Deficiency Anemia Past Surgical History Past Surgical History: Reports: Orthopedic Surgery - left wrist Denies: Mastectomy, Pacemaker Social History Lives with: Alone Smoking Status: Former Smoker Frequency of Alcohol Use: None Hx Recreational Drug Use: No Drugs: None Hx Prescription Drug Abuse: No - Advance Directive Resuscitation Status: Full Code Family History Parental Family History Reviewed: Yes - Negative for ESRD. Children Family History Reviewed: No Sibling(s) Family History Reviewed.: No Medication/Allergy Home Medications: Aspirin [Ecotrin 325 mg EC Tablet] 325 mg PO DAILY 10/04/18 Atenolol [Tenormin] 25 mg PO DAILY 10/04/18 Calcifediol [Rayaldee] 30 mg PO QHS 10/04/18 Diltiazem HCl [Diltiazem 24Hr ER] 300 mg PO QHS 10/04/18 Ferrous Sulfate [Feosol 325 mg Tablet] 325 mg PO DAILY 10/04/18 Furosemide [Lasix 40 mg Tablet] 40 mg PO .1 HOUR PC AM MEDS 10/04/18 Insulin Aspart [Novolog Flexpen] 0 unit SQ .SLIDING SCALE 10/04/18 Insulin Glargine,Hum.rec.anlog [Lantus Insulin 100 Unit/mL] 14 units SQ QHS 10/04/18 Levothyroxine Sodium [Synthroid] 137 mcg PO Q6AM 10/04/18 Metformin HCl [Glucophage 500 mg Tablet] 500 mg PO DAILY 10/04/18 Telmisartan/Hydrochlorothiazid [Telmisartan-Hctz 80-25 mg Tab] 1 tab PO DAILY 10/04/18 Allergies/Adverse Reactions: Sulfa (Sulfonamide Antibiotics) Allergy (Unknown, Verified 10/04/18 11:50) CHILDHOOD ciprofloxacin [From Cipro] Allergy (Verified 10/04/18 11:50) TENDONITIS levofloxacin [From Levaquin] Allergy (Verified 10/04/18 11:50) TENDONITIS BILAT LEGS Review of Systems Constitutional: PRESENT: fatigue. ABSENT: anorexia, chills Nose, Mouth, and Throat: ABSENT: mouth pain, sore throat Cardiovascular: PRESENT: dyspnea on exertion, edema, orthropnea. ABSENT: chest pain Gastrointestinal: PRESENT: diarrhea. ABSENT: abdominal pain, coffee ground em esis, constipation, dysphagia, heartburn, hematemesis, hematochezia Genitourinary: ABSENT: dysuria, hematuria Integumentary: ABSENT: erythema, lesions, pruritus, rash Neurological: ABSENT: abnormal movements, convulsions, focal weakness, frequent falls Endocrine: ABSENT: cold intolerance, heat intolerance Hematologic/Lymphatic: ABSENT: easy bruising, lymphadenopathy Physical Exam Vital Signs: Temp Pulse Resp BP Pulse Ox 97.9 F 71 18 190/78 H 99 10/05/18 07:56 10/05/18 07:56 10/05/18 07:56 10/05/18 07:56 10/05/18 07:56 Intake & Output 10/04/18 10/05/18 10/06/18 06:59 06:59 06:59 Intake Total 150 Balance 150 Weight 92.2 kg General appearance: PRESENT: no acute distress Eye exam: PRESENT: conjunctiva pink, EOMI, PERRLA Ear exam: PRESENT: normal external ear exam Mouth exam: PRESENT: moist, neck supple Neck exam: ABSENT: lymphadenopathy, meningismus, tenderness, thyromegaly, tracheal deviation Respiratory exam: PRESENT: clear to auscultation lalitha, decreased breath sounds. ABSENT: crackles Cardiovascular exam: PRESENT: +S1, +S2. ABSENT: bradycardia - JVD was elevated. GI/Abdominal exam: PRESENT: normal bowel sounds, soft. ABSENT: organomegaly, tenderness Extremities exam: PRESENT: +1 edema Musculoskeletal exam: PRESENT: ambulatory. ABSENT: deformity, tenderness Neurological exam: PRESENT: alert, awake, oriented to person, oriented to place Skin exam: ABSENT: cyanosis, mottled, rash Results Laboratory Results: 10/05/18 02:25 10/05/18 02:25 10/04/18 10/04/18 10/04/18 13:10 13:10 14:15 WBC 4.7 RBC 3.87 Hgb 9.9 L Hct 30.0 L MCV 77 L MCH 25.6 L MCHC 33.1 RDW 16.2 H Plt Count 334 Seg Neutrophils % 72.0 Lymphocytes % 19.3 Monocytes % 8.5 Eosinophils % 0.0 Basophils % 0.2 Absolute Neutrophils 3.4 Absolute Lymphocytes 0.9 Absolute Monocytes 0.4 Absolute Eosinophils 0.0 Absolute Basophils 0.0 Sodium Cancelled 133.6 L Potassium Cancelled 3.5 L Chloride Cancelled 96 L Carbon Dioxide Cancelled 28 Anion Gap Cancelled 10 BUN Cancelled 44 H Creatinine Cancelled 3.16 H Est GFR ( Amer) Cancelled 18 L Est GFR (Non-Af Amer) Cancelled 14 L Glucose Cancelled 187 H Calcium Cancelled 9.0 Magnesium Total Bilirubin Cancelled 0.7 AST Cancelled 19 ALT Cancelled 15 Alkaline Phosphatase Cancelled 89 Total Protein Cancelled 7.1 Albumin Cancelled 4.0 Triglycerides Cholesterol LDL Cholesterol Direct VLDL Cholesterol HDL Cholesterol TSH 10/05/18 10/05/18 10/05/18 02:25 02:25 02:25 WBC 6.5 RBC 3.80 Hgb 9.7 L Hct 29.3 L MCV 77 L MCH 25.5 L MCHC 33.0 RDW 16.5 H Plt Count 286 Seg Neutrophils % 81.8 H Lymphocytes % 11.6 L Monocytes % 6.5 Eosinophils % 0.0 Basophils % 0.1 Absolute Neutrophils 5.3 Absolute Lymphocytes 0.8 Absolute Monocytes 0.4 Absolute Eosinophils 0.0 Absolute Basophils 0.0 Sodium 136.2 L Potassium 3.8 Chloride 98 Carbon Dioxide 26 Anion Gap 12 BUN 42 H Creatinine 3.20 H Est GFR ( Amer) 17 L Est GFR (Non-Af Amer) 14 L Glucose 202 H Calcium 9.2 Magnesium 2.1 Total Bilirubin AST ALT Alkaline Phosphatase Total Protein Albumin Triglycerides 95 Cholesterol 217.40 H LDL Cholesterol Direct 119 H VLDL Cholesterol 19.0 HDL Cholesterol 62 TSH 4.17 10/04/18 10/04/18 10/04/18 13:10 13:10 14:15 Creatine Kinase Cancelled 101 CK-MB (CK-2) Cancelled Troponin I Cancelled 10/04/18 10/04/18 10/04/18 14:26 19:29 23:32 Creatine Kinase CK-MB (CK-2) 1.61 Troponin I 0.047 0.054 0.059 10/05/18 02:25 Creatine Kinase CK-MB (CK-2) Troponin I 0.055 Impressions: Chest X-Ray 10/04/18 12:56 IMPRESSION: Vascular congestion. Bilateral pleural effusions. Venous Doppler Study 10/04/18 12:56 IMPRESSION: NO EVIDENCE DVT OR SVT IN THE RIGHT LEG. Assessment & Plan - Diagnosis (1) Congestive heart failure Plan: Patient has decompensated heart failure. Presently improved with diuresis.Discussed various etiologies for heart disease. Besides the fact that she possibly has underlying structural heart disease we also discussed other precipitants including persistent nocturnal hypoglycemia which should be avoided at all costs in this patient. Advised how this should be avoided in the future. Cardiac workup has been initiated by the hospitalist including echocardiogram. Await for those tests. Meanwhile continue on diuresis. Advised appropriate dietary modifications. (2) Acute on chronic renal failure Qualifiers: Acute renal failure type: unspecified Chronic kidney disease stage: unspecified stage Qualified Code(s): N17.9 - Acute kidney failure, unspecified; N18.9 - Chronic kidney disease, unspecified Is this a current diagnosis for this admission?: Yes Plan: Currently she is close to her baseline. She is not uremic and electrolytes are stable. No acute indications for renal replacements currently. We will see how she responds to conservative measures at the moment. Possibly prevention of nocturnal hypoglycemia and correction of iron deficiency could be enough to keep her going for a while longer. Discussed appropriate dietary modifications. (3) Chronic anemia Is this a current diagnosis for this admission?: Yes Plan: Will initiate anemia workup. See if she is iron deficient we will plan to initiate IV iron infusion followed by erythropoietin given the degree of CKD. (4) Diabetes mellitus type 2 in nonobese Is this a current diagnosis for this admission?: Yes Plan: Advised tight diabetic control and avoidance of persistent hypoglycemic attacks (5) Hypertension Is this a current diagnosis for this admission?: Yes Plan: Is uncontrolled. Titrate her medications. Increase losartan. Start amlodipine. Monitor. (6) Diarrhea Plan: She states she has fecal incontinence . We will check her for C. difficile. Further workup
--- NOTE | 2018-10-05 12:33 | PDOC PROGRESS REPORT ---
Subjective Progress Note for:: 10/05/18 Subjective:: Saw patient this morning and spoke with patient and son at bedside. She tells me overnight she could not sleep as it was her first night in the hospital. She was very restless. She did speak with the director design today. She denies any chest pain, shortness of breath, abdominal pain, headaches or dizziness. He tells me that she has been having drilling machine runner nausea, early satiety, and no eating at night because she is full for the last few months to years. See my discussion for diabetes Reason For Visit: HTN CRISIS, CASTRO, SWELLING Physical Exam Vital Signs: Temp Pulse Resp BP Pulse Ox 97.9 F 70 15 207/82 H 100 10/05/18 11:44 10/05/18 11:44 10/05/18 11:44 10/05/18 11:44 10/05/18 11:44 Intake & Output 10/04/18 10/05/18 10/06/18 06:59 06:59 06:59 Intake Total 150 Balance 150 Weight 203 lb 4.259 oz General appearance: PRESENT: no acute distress Head exam: PRESENT: atraumatic, normocephalic Eye exam: PRESENT: EOMI. ABSENT: conjunctival injection, scleral icterus Ear exam: PRESENT: normal external ear exam Mouth exam: PRESENT: tongue midline Neck exam: ABSENT: tracheal deviation Respiratory exam: PRESENT: decreased breath sounds, symmetrical, unlabored Cardiovascular exam: PRESENT: +S1, +S2 Pulses: PRESENT: +1 pedal pulses bilateral GI/Abdominal exam: PRESENT: normal bowel sounds, soft. ABSENT: tenderness Extremities exam: PRESENT: +2 edema - Right greater than left lower extremity Neurological exam: PRESENT: alert, awake, oriented to person, oriented to place, oriented to time, oriented to situation, CN II-XII grossly intact Skin exam: PRESENT: dry, warm Results Laboratory Results: 10/05/18 02:25 10/05/18 02:25 10/04/18 10/04/18 10/04/18 13:10 13:10 14:15 WBC 4.7 RBC 3.87 Hgb 9.9 L Hct 30.0 L MCV 77 L MCH 25.6 L MCHC 33.1 RDW 16.2 H Plt Count 334 Seg Neutrophils % 72.0 Lymphocytes % 19.3 Monocytes % 8.5 Eosinophils % 0.0 Basophils % 0.2 Absolute Neutrophils 3.4 Absolute Lymphocytes 0.9 Absolute Monocytes 0.4 Absolute Eosinophils 0.0 Absolute Basophils 0.0 Sodium Cancelled 133.6 L Potassium Cancelled 3.5 L Chloride Cancelled 96 L Carbon Dioxide Cancelled 28 Anion Gap Cancelled 10 BUN Cancelled 44 H Creatinine Cancelled 3.16 H Est GFR ( Amer) Cancelled 18 L Est GFR (Non-Af Amer) Cancelled 14 L Glucose Cancelled 187 H Calcium Cancelled 9.0 Magnesium Total Bilirubin Cancelled 0.7 AST Cancelled 19 ALT Cancelled 15 Alkaline Phosphatase Cancelled 89 Total Protein Cancelled 7.1 Albumin Cancelled 4.0 Triglycerides Cholesterol LDL Cholesterol Direct VLDL Cholesterol HDL Cholesterol TSH 10/05/18 10/05/18 10/05/18 02:25 02:25 02:25 WBC 6.5 RBC 3.80 Hgb 9.7 L Hct 29.3 L MCV 77 L MCH 25.5 L MCHC 33.0 RDW 16.5 H Plt Count 286 Seg Neutrophils % 81.8 H Lymphocytes % 11.6 L Monocytes % 6.5 Eosinophils % 0.0 Basophils % 0.1 Absolute Neutrophils 5.3 Absolute Lymphocytes 0.8 Absolute Monocytes 0.4 Absolute Eosinophils 0.0 Absolute Basophils 0.0 Sodium 136.2 L Potassium 3.8 Chloride 98 Carbon Dioxide 26 Anion Gap 12 BUN 42 H Creatinine 3.20 H Est GFR ( Amer) 17 L Est GFR (Non-Af Amer) 14 L Glucose 202 H Calcium 9.2 Magnesium 2.1 Total Bilirubin AST ALT Alkaline Phosphatase Total Protein Albumin Triglycerides 95 Cholesterol 217.40 H LDL Cholesterol Direct 119 H VLDL Cholesterol 19.0 HDL Cholesterol 62 TSH 4.17 10/04/18 10/04/18 10/04/18 13:10 13:10 14:15 Creatine Kinase Cancelled 101 CK-MB (CK-2) Cancelled Troponin I Cancelled 10/04/18 10/04/18 10/04/18 14:26 19:29 23:32 Creatine Kinase CK-MB (CK-2) 1.61 Troponin I 0.047 0.054 0.059 10/05/18 02:25 Creatine Kinase CK-MB (CK-2) Troponin I 0.055 Impressions: Chest X-Ray 10/04/18 12:56 IMPRESSION: Vascular congestion. Bilateral pleural effusions. Venous Doppler Study 10/04/18 12:56 IMPRESSION: NO EVIDENCE DVT OR SVT IN THE RIGHT LEG. Assessment & Plan - Diagnosis (1) Hypertensive emergency Is this a current diagnosis for this admission?: Yes Plan: Her blood pressure still seems to be uncontrolled. He has hydralazine IV as needed every 4 hours. Nephrology has added Norvasc to her regimen. I have started her on losartan and it was increased by nephrology 200 mg daily. As per patient she was started on hydralazine 25 mg twice daily at home which we have not restarted here. Patient had not taken that medication since scribed by her PCP. I will start her at 25 mg twice daily and see how she does. She is also on Cardizem 300 mg at nighttime. She tells me that her atenolol was stopped by which was in her med rec. She did not get it today and we will stop it. (2) Bilateral lower extremity edema Is this a current diagnosis for this admission?: Yes Plan: Right extremity worse than left extremity. She is on 40 mg of Lasix at home daily. We will continue. Echocardiogram was ordered and pending. Ultrasound of the lower extremity was done in the ED and it was negative. (3) Hypertension Is this a current diagnosis for this admission?: Yes (4) Diabetes mellitus type 2 in nonobese Is this a current diagnosis for this admission?: Yes Plan: Hemoglobin A1c is 8 this morning. Concern for hypoglycemia hence I have lowered her Lantus to 8 units from 14 units which she is at home. Continue sliding scale. She continues to complain of nausea in the drilling machine runner with gagging and early satiety and a feeling of always of being full. Given her uncontrolled diabetes it is possible that she has diabetic gastroparesis. I have discussed with her about starting Reglan but she is reluctant. I discussed about trying small frequent meals throughout the day and she is willing to try that. I will get nutrition/dietitian involved to discuss further. (5) Acute on chronic renal failure Qualifiers: Acute renal failure type: unspecified Chronic kidney disease stage: unspeci fied stage Qualified Code(s): N17.9 - Acute kidney failure, unspecified; N18.9 - Chronic kidney disease, unspecified Is this a current diagnosis for this admission?: Yes Plan: Difficult to tell what her baseline creatinine is but today it is greater than 3. I have consulted nephrology as she follows with them outpatient. I appreciate assistance from Dr. Duran. Creatinine slightly worse than yesterday. (6) Dyslipidemia Is this a current diagnosis for this admission?: Yes Plan: Noted-she has high cholesterol and I have started her on atorvastatin at this time. (7) Chronic anemia Is this a current diagnosis for this admission?: Yes Plan: Hemoglobin is stable at this time. Looking back at her past results she seems to be around 9-10 hemoglobin chronically. Monitor for bleed. Transfuse for hemoglobin less than 7 since she does not have a history of coronary artery disease that I know of. (8) Hyponatremia Is this a current diagnosis for this admission?: Yes Plan: Improved with some gentle hydration overnight. Currently she is off of IV fluids. (9) Hypokalemia Is this a current diagnosis for this admission?: Yes Plan: We will replete as needed-resolved at this time
[2018-10-05] MEDS ORDERED: AMLODIPINE BESYLATE 5 MG TABLET PO ONE (13:15)
[2018-10-05] MEDS ORDERED: LEVOTHYROXINE SODIUM 0.112 MG TABLET PO ONE (13:15)
[2018-10-05] MEDS ORDERED: DILTIAZEM HCL 300 MG PO SCH (22:00)
[2018-10-05] MEDS: ATORVASTATIN CALCIUM 40 MG TABLET PO SCH (23:18)
[2018-10-05] MEDS: DILTIAZEM HCL 120 MG CAP.SR.24H PO SCH (23:18)
[2018-10-05] MEDS: DILTIAZEM HCL 180 MG CAPSULE.CR PO SCH (23:18)
[2018-10-05] MEDS: AMLODIPINE BESYLATE 5 MG TABLET PO SCH (23:19)
[2018-10-05] MEDS: INSULIN GLARGINE,HUM.REC.ANLOG 300 UNIT/3 ML INSULN.PEN SUBCUT SCH (23:20)
[2018-10-05] MEDS: HYDRALAZINE HCL 50 MG TABLET PO SCH (23:27)
[2018-10-06] MEDS: HYDRALAZINE HCL 50 MG TABLET PO SCH ×3 (00:36→21:44)
[2018-10-06] MEDS ORDERED: (PENDING PHARMACY ID) (Levothyroxine Sodium [Synthroid] 137 MCG) PO SCH (06:00)
[2018-10-06] MEDS: LEVOTHYROXINE SODIUM 0.112 MG TABLET PO SCH (06:17)
[2018-10-06] MEDS: LEVOTHYROXINE SODIUM 0.025 MG TABLET PO SCH (06:17)
[2018-10-06 08:49] LABS: ABSOLUTE RETICS # 0.067 10^6/uL (0.028-0.122); HEMATOCRIT 26.9 % (36.0-47.0); HEMOGLOBIN 8.9 g/dL (12.0-15.5); MEAN CORPUSCULAR HGB CONC 32.9 g/dL (32.0-36.0); MEAN CORPUSCULAR VOLUME 79 fl (80-97); PLATELET COUNT 259 10^3/uL (150-450); RED BLOOD COUNT 3.41 10^6/uL (3.72-5.28); RED CELL DISTRIBUTION WIDTH 16.3 % (11.5-14.0); RETICULOCYTE COUNT (AUTO) 1.97 % (0.66-2.85); WHITE BLOOD COUNT 5.1 10^3/uL (4.0-10.5)
[2018-10-06 08:58] LABS: ANION GAP 12 (5-19); BLOOD UREA NITROGEN 48 mg/dL (7-20); CALCIUM 8.6 mg/dL (8.4-10.2); CARBON DIOXIDE 25 mmol/L (22-30); CHLORIDE 95 mmol/L (98-107); GLUCOSE 281 mg/dL (75-110); IRON(TIBC) 28.9 ug/dL (37-170); POTASSIUM 4.1 mmol/L (3.6-5.0); SODIUM 132.2 mmol/L (137-145)
[2018-10-06] MEDS: HEPARIN SOD (PORCINE) 5,000 UNIT/ML 1 ML SYRINGE SUBCUT SCH ×3 (09:08→21:48)
[2018-10-06] MEDS: DOCUSATE SODIUM 100 MG CAPSULE PO SCH ×2 (09:19→17:35)
[2018-10-06] MEDS: FAMOTIDINE 20 MG TABLET PO SCH ×2 (09:20→21:48)
[2018-10-06] MEDS: ASPIRIN 325 MG TABLET, ENT COATED PO SCH (09:20)
[2018-10-06] MEDS: LOSARTAN POTASSIUM 50 MG TABLET PO SCH (09:20)
[2018-10-06] MEDS: INSULIN LISPRO 100 UNIT/ML 3 ML VIAL SUBCUT PRN ×3 (10:49→17:41)
--- NOTE | 2018-10-06 11:21 | PDOC PROGRESS REPORT ---
Subjective Progress Note for:: 10/06/18 Reason For Visit: Patient seen this morning. Son is by the bedside. Patient feels lots better since admission. Sleeps well last night without much of her orthopnea. She has a dry hacking cough which she says happens every day in the mornings because of postnasal drip. She denies any history of chest pain, fever or chills.No nausea vomiting. Fairly good appetite. Her edema of the legs is markedly improved. Labs and medications were reviewed with her. Physical Exam Vital Signs: Temp Pulse Resp BP Pulse Ox 98.4 F 58 L 20 144/53 H 98 10/06/18 07:40 10/06/18 07:40 10/06/18 07:40 10/06/18 07:40 10/06/18 07:40 Intake & Output 10/05/18 10/06/18 10/07/18 06:59 06:59 06:59 Intake Total 150 1418 Output Total 900 Balance 150 518 Weight 92.2 kg 92.4 kg General appearance: PRESENT: no acute distress Respiratory exam: PRESENT: clear to auscultation lalitha, decreased breath sounds. ABSENT: crackles Cardiovascular exam: PRESENT: +S1, +S2. ABSENT: bradycardia - JVD was elevated. GI/Abdominal exam: PRESENT: normal bowel sounds, soft. ABSENT: organomegaly, tenderness Extremities exam: PRESENT: pedal edema - None on the left side with trace to 1+ on the right side. Neurological exam: PRESENT: alert, awake, oriented to person, oriented to place Psychiatric exam: PRESENT: appropriate affect Skin exam: ABSENT: erythema, mottled, rash Results Laboratory Results: 10/06/18 07:47 10/06/18 07:47 10/06/18 10/06/18 07:47 07:47 WBC 5.1 RBC 3.41 L Hgb 8.9 L Hct 26.9 L MCV 79 L MCH 26.0 L MCHC 32.9 RDW 16.3 H Plt Count 259 Retic Count (auto) 1.97 Absolute Retic 0.067 Sodium 132.2 L Potassium 4.1 Chloride 95 L Carbon Dioxide 25 Anion Gap 12 BUN 48 H Creatinine 3.62 H Est GFR ( Amer) 15 L Est GFR (Non-Af Amer) 12 L Glucose 281 H Calcium 8.6 Iron 28.9 L TIBC 301 % Saturation 10 Ferritin 49.40 Vitamin B12 645.0 Folate 8.20 10/04/18 10/04/18 10/04/18 13:10 13:10 14:15 Creatine Kinase Cancelled 101 CK-MB (CK-2) Cancelled Troponin I Cancelled 10/04/18 10/04/18 10/04/18 14:26 19:29 23:32 Creatine Kinase CK-MB (CK-2) 1.61 Troponin I 0.047 0.054 0.059 10/05/18 02:25 Creatine Kinase CK-MB (CK-2) Troponin I 0.055 Impressions: Chest X-Ray 10/04/18 12:56 IMPRESSION: Vascular congestion. Bilateral pleural effusions. Venous Doppler Study 10/04/18 12:56 IMPRESSION: NO EVIDENCE DVT OR SVT IN THE RIGHT LEG. Assessment & Plan - Diagnosis (1) Congestive heart failure Plan: Markedly improved. Clinically now she is getting over diuresed. Will cut back on her diuretics. (2) Acute on chronic renal failure Qualifiers: Acute renal failure type: unspecified Chronic kidney disease stage: unspecified stage Qualified Code(s): N17.9 - Acute kidney failure, unspecified; N18.9 - Chronic kidney disease, unspecified Is this a current diagnosis for this admission?: Yes Plan: Tetanus rising up to 3.6. As mentioned earlier she has been over diuresed. We will cut back on her diuretics and see how she does. Monitor. (3) Chronic anemia Is this a current diagnosis for this admission?: Yes Plan: Looks like she is got a combination of iron deficiency and anemia of chronic kidney disease. Since she has got bowel issues I would like to recommend pa renteral infusion of iron. Later will need to consider erythropoietin. Will discuss with patient and the son. (4) Diabetes mellitus type 2 in nonobese Is this a current diagnosis for this admission?: Yes Plan: With adjustments of her Lantus she has had no further hypoglycemia since this morning. She has symptoms of history of diabetic gastroparesis and her blood sugars can be labile. (5) Hypertension Is this a current diagnosis for this admission?: Yes Plan: Controlled. Monitor. (6) Diarrhea Plan: Stable. Monitor.
[2018-10-06] MEDS ORDERED: ONDANSETRON HCL INJ/PF 4 MG/2 ML SDV IV PRN (12:00)
--- NOTE | 2018-10-06 20:35 | PDOC PROGRESS REPORT ---
Subjective Progress Note for:: 10/06/18 Subjective:: Doing okay, no chest pain or shortness of breath or palpitations. She feels lower extremity swelling better. She is urinating okay. Reason For Visit: HTN CRISIS, CASTRO, SWELLING Physical Exam Vital Signs: Temp Pulse Resp BP Pulse Ox 98.2 F 55 L 17 158/65 H 97 10/06/18 15:53 10/06/18 15:53 10/06/18 15:53 10/06/18 15:53 10/06/18 15:53 Intake & Output 10/05/18 10/06/18 10/07/18 06:59 06:59 06:59 Intake Total 150 1418 480 Output Total 900 Balance 150 518 480 Weight 92.2 kg 92.4 kg General appearance: PRESENT: no acute distress Head exam: PRESENT: atraumatic, normocephalic Neck exam: ABSENT: JVD, tracheal deviation Respiratory exam: PRESENT: decreased breath sounds, symmetrical, unlabored Cardiovascular exam: PRESENT: +S1, +S2 Pulses: PRESENT: +1 pedal pulses bilateral GI/Abdominal exam: PRESENT: normal bowel sounds, soft. ABSENT: tenderness Extremities exam: PRESENT: +1 edema Neurological exam: PRESENT: alert, awake, oriented to person, oriented to place, oriented to time, oriented to situation, CN II-XII grossly intact Skin exam: PRESENT: dry, warm Results Laboratory Results: 10/06/18 07:47 10/06/18 07:47 10/06/18 10/06/18 07:47 07:47 WBC 5.1 RBC 3.41 L Hgb 8.9 L Hct 26.9 L MCV 79 L MCH 26.0 L MCHC 32.9 RDW 16.3 H Plt Count 259 Retic Count (auto) 1.97 Absolute Retic 0.067 Sodium 132.2 L Potassium 4.1 Chloride 95 L Carbon Dioxide 25 Anion Gap 12 BUN 48 H Creatinine 3.62 H Est GFR ( Amer) 15 L Est GFR (Non-Af Amer) 12 L Glucose 281 H Calcium 8.6 Iron 28.9 L TIBC 301 % Saturation 10 Ferritin 49.40 Vitamin B12 645.0 Folate 8.20 10/04/18 10/04/18 10/04/18 13:10 13:10 14:15 Creatine Kinase Cancelled 101 CK-MB (CK-2) Cancelled Troponin I Cancelled 10/04/18 10/04/18 10/04/18 14:26 19:29 23:32 Creatine Kinase CK-MB (CK-2) 1.61 Troponin I 0.047 0.054 0.059 10/05/18 02:25 Creatine Kinase CK-MB (CK-2) Troponin I 0.055 Impressions: Chest X-Ray 10/04/18 12:56 IMPRESSION: Vascular congestion. Bilateral pleural effusions. Venous Doppler Study 10/04/18 12:56 IMPRESSION: NO EVIDENCE DVT OR SVT IN THE RIGHT LEG. Assessment & Plan - Diagnosis (1) Hypertensive emergency Is this a current diagnosis for this admission?: Yes (2) Acute on chronic renal failure Qualifiers: Acute renal failure type: unspecified Chronic kidney disease stage: unspecified stage Qualified Code(s): N17.9 - Acute kidney failure, unspecified; N18.9 - Chronic kidney disease, unspecified Is this a current diagnosis for this admission?: Yes (3) Bilateral lower extremity edema Is this a current diagnosis for this admission?: Yes (4) Hypertension Is this a current diagnosis for this admission?: Yes (5) Hypokalemia Is this a current diagnosis for this admission?: Yes (6) Hyponatremia Is this a current diagnosis for this admission?: Yes (7) Dyslipidemia Is this a current diagnosis for this admission?: Yes (8) Diabetes mellitus type 2 in nonobese Is this a current diagnosis for this admission?: Yes - Plan Summary Plan Summary: Patient's blood pressure is improved. Hyponatremia is better also. Renal function slightly worsened, I agree with nephrology to decrease Lasix dose. Continue management otherwise, including Lantus and sliding scale insulin for diabetes. Follow-up extremity edema, there is some improvement. Echocardiogram to evaluate for cardiomyopathy pending. Follow-up CBC and Chem-7 in a.m.
[2018-10-06] MEDS: AMLODIPINE BESYLATE 5 MG TABLET PO SCH (21:42)
[2018-10-06] MEDS: DILTIAZEM HCL 120 MG CAP.SR.24H PO SCH (21:45)
[2018-10-06] MEDS: DILTIAZEM HCL 180 MG CAPSULE.CR PO SCH (21:46)
[2018-10-06] MEDS: ATORVASTATIN CALCIUM 40 MG TABLET PO SCH (21:47)
[2018-10-06] MEDS: INSULIN GLARGINE,HUM.REC.ANLOG 300 UNIT/3 ML INSULN.PEN SUBCUT SCH (21:49)
--- NOTE | 2018-10-06 23:03 | XCELERA REPORT ---
[address] [address] Transthoracic Echocardiogram Report Name: ARCHANA QUINN Age: 73 yrs Gender: Female : 1945 Patient Status: Inpatient Patient Location: [address] [place] [address] Study Date: 10/05/2018 04:13 PM Procedure: A two-dimensional transthoracic echocardiogram with color flow and Doppler was performed. The study was technically difficult with many images being suboptimal in quality. Reason For Study: shortness of breath History: Shortness of breath. Ordering Physician: DEDRICK JACOBS Performed By: Malissa Michelle Interpretation Summary Shortness of breath The left ventricle is normal in size. There is normal left ventricular wall thickness. LV EF is 45% to 50% Left ventricular systolic function is mild to moderately reduced. Doppler measurements suggest normal left ventricular diastolic function There is mild to moderate global hypokinesis of the left ventricle. The right ventricular systolic function is normal. The right atrium is normal. The left atrium is moderately dilated. There is no evidence of mitral valve prolapse. There is no vegetation seen on the mitral valve. There is no mitral valve stenosis. There is no mitral regurgitation noted. There is no aortic valvular vegetation. There is no aortic valve stenosis There is no LVOT obstruction. No aortic regurgitation is present. There is no tricuspid stenosis. There is a trace amount of tricuspid regurgitation Unable to calculate RVSP due lack of TR jet. The aortic root is not well visualized but is probably normal size. There is no pericardial effusion. Moderate to large left pleural effusion MMode/2D Measurements & Calculations RVDd: 3.3 cm LVIDd: 5.5 cm FS: 20.9 % Ao root diam: 3.3 cm IVSd: 0.77 cm LVIDs: 4.3 cm EDV(Teich): 144.9 ml Ao root area: 8.5 cm2 LVPWd: 1.3 cm ESV(Teich): 84.0 ml EF(Teich): 42.0 % Doppler Measurements & Calculations MV E max aleida: MV dec slope: Ao V2 max: LV V1 max P.6 cm/sec 150.8 cm/sec 6.0 mmHg MV A max aleida: 852.7 cm/sec2 Ao max PG: LV V1 max: 94.8 cm/sec MV dec time: 0.15 sec9.1 mmHg 122.5 cm/sec MV E/A: 1.4 PA V2 max: 105.9 cm/sec PA max P.5 mmHg Left Ventricle The left ventricle is normal in size. There is normal left ventricular wall thickness. LV EF is 45% to 50%. Left ventricular systolic function is mild to moderately reduced. Doppler measurements suggest normal left ventricular diastolic function. There is mild to moderate global hypokinesis of the left ventricle. There is no thrombus. Right Ventricle The right ventricle is borderline dilated. The right ventricular systolic function is normal. Atria The right atrium is normal. The left atrium is moderately dilated. Mitral Valve There is no evidence of mitral valve prolapse. There is no vegetation seen on the mitral valve. There is no mitral valve stenosis. There is no mitral regurgitation noted. Aortic Valve There is no aortic valvular vegetation. There is no aortic valve stenosis. There is no LVOT obstruction. No aortic regurgitation is present. Tricuspid Valve There is no tricuspid stenosis. There is a trace amount of tricuspid regurgitation. Unable to calculate RVSP due lack of TR jet. Pulmonic Valve There is no pulmonic valvular stenosis. There is no pulmonic valvular regurgitation. Great Vessels The aortic root is not well visualized but is probably normal size. Effusions There is no pericardial effusion. Moderate to large left pleural effusion. : DEDRICK JACOBS > Nani Meidna
[2018-10-07] MEDS: LEVOTHYROXINE SODIUM 0.025 MG TABLET PO SCH (05:59)
[2018-10-07] MEDS: LEVOTHYROXINE SODIUM 0.112 MG TABLET PO SCH (06:00)
[2018-10-07] MEDS: HEPARIN SOD (PORCINE) 5,000 UNIT/ML 1 ML SYRINGE SUBCUT SCH ×3 (06:00→21:03)
[2018-10-07 08:19] LABS: ABSOLUTE LYMPHOCYTES (AUTO) 0.8 10^3/uL (0.5-4.7); ABSOLUTE MONOCYTES (AUTO) 0.5 10^3/uL (0.1-1.4); ABSOLUTE NEUT (AUTO) 3.9 10^3/uL (1.7-8.2); BASOPHILS % (AUTO) 0.1 % (0-2); HEMATOCRIT 25.1 % (36.0-47.0); HEMOGLOBIN 8.3 g/dL (12.0-15.5); LYMPHOCYTES % (AUTO) 15.9 % (13-45); MEAN CORPUSCULAR HEMOGLOBIN 26.2 pg (27.0-33.4); MEAN CORPUSCULAR VOLUME 79 fl (80-97); PLATELET COUNT 234 10^3/uL (150-450); RED BLOOD COUNT 3.17 10^6/uL (3.72-5.28); RED CELL DISTRIBUTION WIDTH 15.9 % (11.5-14.0); TOTAL CELLS COUNTED % (AUTO) 100 %; WHITE BLOOD COUNT 5.2 10^3/uL (4.0-10.5)
[2018-10-07 08:37] LABS: ANION GAP 13 (5-19); BLOOD UREA NITROGEN 54 mg/dL (7-20); CALCIUM 8.6 mg/dL (8.4-10.2); CARBON DIOXIDE 22 mmol/L (22-30); CHLORIDE 95 mmol/L (98-107); GLUCOSE 323 mg/dL (75-110); POTASSIUM 4.3 mmol/L (3.6-5.0); SODIUM 129.7 mmol/L (137-145)
[2018-10-07] MEDS: INSULIN LISPRO 100 UNIT/ML 3 ML VIAL SUBCUT PRN ×3 (08:52→18:24)
[2018-10-07] MEDS: DOCUSATE SODIUM 100 MG CAPSULE PO SCH ×2 (10:03→17:39)
[2018-10-07] MEDS: FAMOTIDINE 20 MG TABLET PO SCH ×2 (10:03→21:05)
[2018-10-07] MEDS: ASPIRIN 325 MG TABLET, ENT COATED PO SCH (10:03)
[2018-10-07] MEDS: HYDRALAZINE HCL 50 MG TABLET PO SCH ×2 (10:04→21:04)
[2018-10-07] MEDS: FUROSEMIDE 20 MG TABLET PO SCH (10:04)
[2018-10-07] MEDS: LOSARTAN POTASSIUM 50 MG TABLET PO SCH (10:09)
[2018-10-07] MEDS ORDERED: NORMAL SALINE 1000 ML 1,000 ML IV PRN (11:08)
--- NOTE | 2018-10-07 12:17 | PDOC PROGRESS REPORT ---
Subjective Progress Note for:: 10/07/18 Reason For Visit: Patient seen this morning. She is doing a whole lot better. No further edema. Breathing is back to baseline. No complaints of any chest pains or shortness of breath unless she exerts that she has not done yet. Labs and medications were reviewed with the patient and her son who is at the bedside. Her sodium has dropped 129 and her creatinine is gone up to 4.6 from her base of around 3.I also did review the echocardiogram with her which shows moderately reduced ejection fraction of around 45-50% with global hypokinesis. Physical Exam Vital Signs: Temp Pulse Resp BP Pulse Ox 97.8 F 45 L 17 126/46 H 95 10/07/18 07:50 10/07/18 07:50 10/07/18 07:50 10/07/18 07:50 10/07/18 07:50 Intake & Output 10/06/18 10/07/18 10/08/18 06:59 06:59 06:59 Intake Total 1418 820 66 Output Total 900 Balance 518 820 66 Weight 92.4 kg 92.5 kg General appearance: PRESENT: no acute distress Respiratory exam: PRESENT: clear to auscultation lalitha, decreased breath sounds. ABSENT: crackles Cardiovascular exam: PRESENT: +S1, +S2. ABSENT: bradycardia - JVD was elevated. GI/Abdominal exam: PRESENT: normal bowel sounds, soft. ABSENT: organomegaly, tenderness Extremities exam: ABSENT: pedal edema Neurological exam: PRESENT: alert, awake, oriented to person, oriented to place Psychiatric exam: PRESENT: appropriate affect Skin exam: ABSENT: abrasion, erythema, mottled, rash Results Laboratory Results: 10/07/18 07:07 10/07/18 07:07 10/07/18 10/07/18 07:07 07:07 WBC 5.2 RBC 3.17 L Hgb 8.3 L Hct 25.1 L MCV 79 L MCH 26.2 L MCHC 33.0 RDW 15.9 H Plt Count 234 Seg Neutrophils % 75.0 Lymphocytes % 15.9 Monocytes % 9.0 Eosinophils % 0.0 Basophils % 0.1 Absolute Neutrophils 3.9 Absolute Lymphocytes 0.8 Absolute Monocytes 0.5 Absolute Eosinophils 0.0 Absolute Basophils 0.0 Sodium 129.7 L Potassium 4.3 Chloride 95 L Carbon Dioxide 22 Anion Gap 13 BUN 54 H Creatinine 4.78 H Est GFR ( Amer) 11 L Est GFR (Non-Af Amer) 9 L Glucose 323 H Calcium 8.6 10/04/18 10/04/18 10/04/18 13:10 13:10 14:15 Creatine Kinase Cancelled 101 CK-MB (CK-2) Cancelled Troponin I Cancelled 10/04/18 10/04/18 10/04/18 14:26 19:29 23:32 Creatine Kinase CK-MB (CK-2) 1.61 Troponin I 0.047 0.054 0.059 10/05/18 02:25 Creatine Kinase CK-MB (CK-2) Troponin I 0.055 Impressions: Chest X-Ray 10/04/18 12:56 IMPRESSION: Vascular congestion. Bilateral pleural effusions. Venous Doppler Study 10/04/18 12:56 IMPRESSION: NO EVIDENCE DVT OR SVT IN THE RIGHT LEG. Assessment & Plan - Diagnosis (1) Congestive heart failure Plan: Resolved. Clinically and symptomatically she is much better. LV ejection fraction is reduced to 45-50% on echo. No valvular heart disease. She is over diuresed and therefore renal functions are also affected. I would gently hydrate her with half a liter of fluid. Discussed with patient and the son. I am also going to refer her to Dr. Medina/cardiology for further evaluation of congestive heart failure with depressed LV ejection fraction. She needs further risk stratification. (2) Acute on chronic renal failure Qualifiers: Acute renal failure type: unspecified Chronic kidney disease stage: unspecified stage Qualified Code(s): N17.9 - Acute kidney failure, unspecified; N18.9 - Chronic kidney disease, unspecified Is this a current diagnosis for this admission?: Yes Plan: Creatinine now rising up to 4.7 from yesterday of 3.6. As mentioned earlier she has been over diuresed. Will hold on her diuretics and do some gentle hydration. Monitor. (3) Chronic anemia Is this a current diagnosis for this admission?: Yes Plan: Looks like she is got a combination of iron deficiency and anemia of chronic kidney disease. Since she has got bowel issues I would like to recommend parenteral infusion of iron. Later will need to consider erythropoietin. Will discuss with patient and the son. (4) Diabetes mellitus type 2 in nonobese Is this a current diagnosis for this admission?: Yes Plan: With adjustments of her Lantus she has had no further hypoglycemia since this morning. She has symptoms of history of diabetic gastroparesis and her blood sugars can be labile. (5) Hypertension Is this a current diagnosis for this admission?: Yes Plan: Controlled. Monitor.
--- NOTE | 2018-10-07 15:31 | PDOC PROGRESS REPORT ---
Subjective Progress Note for:: 10/07/18 Subjective:: 73-year-old female admitted with SOB, hypertensive urgency, lower extremity edema, CASTRO. Doing okay, no chest pain or shortness of breath or palpitations. Concern about blood sugar very in the 300s this morning. She feels lower extremity swelling better. She has no problems with urination. Reason For Visit: HTN CRISIS, CASTRO, SWELLING Physical Exam Vital Signs: Temp Pulse Resp BP Pulse Ox 97.3 F 48 L 17 149/54 H 100 10/07/18 11:29 10/07/18 11:29 10/07/18 11:29 10/07/18 11:29 10/07/18 11:29 Intake & Output 10/06/18 10/07/18 10/08/18 06:59 06:59 06:59 Intake Total 1418 820 66 Output Total 900 Balance 518 820 66 Weight 92.4 kg 92.5 kg General appearance: PRESENT: no acute distress Head exam: PRESENT: atraumatic, normocephalic Neck exam: ABSENT: JVD, tracheal deviation Respiratory exam: PRESENT: normal breath sounds, symmetrical, unlabored Cardiovascular exam: PRESENT: +S1, +S2 Pulses: PRESENT: +1 pedal pulses bilateral GI/Abdominal exam: PRESENT: normal bowel sounds, soft. ABSENT: tenderness Extremities exam: PRESENT: +1 edema Neurological exam: PRESENT: alert, awake, oriented to person, oriented to place, oriented to time, oriented to situation, CN II-XII grossly intact Skin exam: PRESENT: dry, warm Results Laboratory Results: 10/07/18 07:07 10/07/18 07:07 10/07/18 10/07/18 07:07 07:07 WBC 5.2 RBC 3.17 L Hgb 8.3 L Hct 25.1 L MCV 79 L MCH 26.2 L MCHC 33.0 RDW 15.9 H Plt Count 234 Seg Neutrophils % 75.0 Lymphocytes % 15.9 Monocytes % 9.0 Eosinophils % 0.0 Basophils % 0.1 Absolute Neutrophils 3.9 Absolute Lymphocytes 0.8 Absolute Monocytes 0.5 Absolute Eosinophils 0.0 Absolute Basophils 0.0 Sodium 129.7 L Potassium 4.3 Chloride 95 L Carbon Dioxide 22 Anion Gap 13 BUN 54 H Creatinine 4.78 H Est GFR ( Amer) 11 L Est GFR (Non-Af Amer) 9 L Glucose 323 H Calcium 8.6 10/04/18 10/04/18 10/04/18 13:10 13:10 14:15 Creatine Kinase Cancelled 101 CK-MB (CK-2) Cancelled Troponin I Cancelled 10/04/18 10/04/18 10/04/18 14:26 19:29 23:32 Creatine Kinase CK-MB (CK-2) 1.61 Troponin I 0.047 0.054 0.059 10/05/18 02:25 Creatine Kinase CK-MB (CK-2) Troponin I 0.055 Impressions: Chest X-Ray 10/04/18 12:56 IMPRESSION: Vascular congestion. Bilateral pleural effusions. Venous Doppler Study 10/04/18 12:56 IMPRESSION: NO EVIDENCE DVT OR SVT IN THE RIGHT LEG. Assessment & Plan - Diagnosis (1) Hypertensive emergency Is this a current diagnosis for this admission?: Yes (2) Acute on chronic renal failure Qualifiers: Acute renal failure type: unspecified Chronic kidney disease stage: unspecified stage Qualified Code(s): N17.9 - Acute kidney failure, unsp ecified; N18.9 - Chronic kidney disease, unspecified Is this a current diagnosis for this admission?: Yes (3) Bilateral lower extremity edema Is this a current diagnosis for this admission?: Yes (4) Hypertension Is this a current diagnosis for this admission?: Yes (5) Hypokalemia Is this a current diagnosis for this admission?: Yes (6) Hyponatremia Is this a current diagnosis for this admission?: Yes (7) Dyslipidemia Is this a current diagnosis for this admission?: Yes (8) Diabetes mellitus type 2 in nonobese Is this a current diagnosis for this admission?: Yes - Plan Summary Plan Summary: Patient's blood pressure has improved. Hyponatremia is better although serum sodium a little down today. Renal function has further worsened today, I agree with nephrology to give a trial of change to IV fluid 500 mL over 7 hours. Recheck Chem-7 in a.m. For lower extremity edema, Dopplers negative for DVT. Echocardiogram to evaluate for cardiomyopathy shows slightly reduced EF at 45-50%. Dr. Duran of nephrology consulted Dr. Willard. Dr. Medina called to tell me that patient is on Cardizem at a heart rate running slightly low. He recommended stopping the Cardizem and for patient to follow-up with him in clinic. Will increase hydralazine from 50 mg every 12 to 75 mg every 8 hours. Monitor blood pressure and consider adding other agents if blood pressure becomes uncontrolled again. Follow-up CBC and Chem-7 in a.m.
[2018-10-07 15:38] LABS: ALPHA-2-GLOBULIN 2 0.7 g/dL (0.4-1.0); BETA GLOBULINS 0.8 g/dL (0.7-1.3); GAMMA GLOBULIN 1.3 g/dL (0.4-1.8); GLOBULIN TOTAL 3.1 g/dL (2.2-3.9); MONOCLONAL SPIKE Not Observed g/dL (Not Observ); PROTEIN TOTAL SERUM 6.1 g/dL (6.0-8.5)
[2018-10-07] MEDS: ATORVASTATIN CALCIUM 40 MG TABLET PO SCH (21:05)
[2018-10-07] MEDS: AMLODIPINE BESYLATE 5 MG TABLET PO SCH (21:05)
[2018-10-07] MEDS: INSULIN GLARGINE,HUM.REC.ANLOG 300 UNIT/3 ML INSULN.PEN SUBCUT SCH (21:12)
[2018-10-08] MEDS: LEVOTHYROXINE SODIUM 0.112 MG TABLET PO SCH (05:58)
[2018-10-08] MEDS: LEVOTHYROXINE SODIUM 0.025 MG TABLET PO SCH (05:58)
[2018-10-08] MEDS: HEPARIN SOD (PORCINE) 5,000 UNIT/ML 1 ML SYRINGE SUBCUT SCH ×3 (05:58→21:03)
[2018-10-08] MEDS: HYDRALAZINE HCL 50 MG TABLET PO SCH ×3 (05:58→21:04)
[2018-10-08] MEDS: INSULIN LISPRO 100 UNIT/ML 3 ML VIAL SUBCUT PRN ×4 (06:34→21:02)
[2018-10-08 07:22] LABS: ABSOLUTE LYMPHOCYTES (AUTO) 0.7 10^3/uL (0.5-4.7); ABSOLUTE MONOCYTES (AUTO) 0.5 10^3/uL (0.1-1.4); ABSOLUTE NEUT (AUTO) 4.1 10^3/uL (1.7-8.2); BASOPHILS % (AUTO) 0.1 % (0-2); HEMATOCRIT 26.4 % (36.0-47.0); HEMOGLOBIN 8.9 g/dL (12.0-15.5); LYMPHOCYTES % (AUTO) 12.5 % (13-45); MEAN CORPUSCULAR HEMOGLOBIN 26.2 pg (27.0-33.4); MEAN CORPUSCULAR HGB CONC 33.6 g/dL (32.0-36.0); MEAN CORPUSCULAR VOLUME 78 fl (80-97); PLATELET COUNT 241 10^3/uL (150-450); RED BLOOD COUNT 3.38 10^6/uL (3.72-5.28); RED CELL DISTRIBUTION WIDTH 15.8 % (11.5-14.0); SEGMENTED NEUTROPHILS % (AUTO) 77.4 % (42-78); TOTAL CELLS COUNTED % (AUTO) 100 %; WHITE BLOOD COUNT 5.2 10^3/uL (4.0-10.5)
[2018-10-08 07:42] LABS: ANION GAP 15 (5-19); BLOOD UREA NITROGEN 61 mg/dL (7-20); CALCIUM 8.6 mg/dL (8.4-10.2); CARBON DIOXIDE 22 mmol/L (22-30); CHLORIDE 93 mmol/L (98-107); GLUCOSE 397 mg/dL (75-110); POTASSIUM 4.1 mmol/L (3.6-5.0); SODIUM 129.9 mmol/L (137-145)
[2018-10-08] MEDS: FAMOTIDINE 20 MG TABLET PO SCH ×2 (09:20→21:04)
[2018-10-08] MEDS: ASPIRIN 325 MG TABLET, ENT COATED PO SCH (09:20)
[2018-10-08] MEDS: LOSARTAN POTASSIUM 50 MG TABLET PO SCH (09:20)
[2018-10-08] MEDS: DOCUSATE SODIUM 100 MG CAPSULE PO SCH ×2 (09:23→17:34)
--- NOTE | 2018-10-08 14:32 | PDOC PROGRESS REPORT ---
Subjective Progress Note for:: 10/08/18 Subjective:: Patient was seen and examined. She feels better. Edema will resolve. Her breathing is better. Her kidney function is worse than admission. Her creatinine now is 4.71. Reason For Visit: HTN CRISIS, CASTRO, SWELLING Physical Exam Vital Signs: Temp Pulse Resp BP Pulse Ox 97.7 F 58 L 15 150/59 H 92 10/08/18 11:00 10/08/18 11:00 10/08/18 11:00 10/08/18 11:00 10/08/18 11:00 Intake & Output 10/07/18 10/08/18 10/09/18 06:59 06:59 06:59 Intake Total 820 666 Balance 820 666 Weight 203 lb 14.841 oz 203 lb 14.841 oz General appearance: PRESENT: no acute distress, cooperative Head exam: PRESENT: atraumatic, normocephalic Eye exam: ABSENT: conjunctival injection Mouth exam: PRESENT: moist, neck supple Neck exam: ABSENT: meningismus, tenderness Respiratory exam: PRESENT: clear to auscultation lalitha. ABSENT: accessory muscle use Pulses: PRESENT: normal radial pulses GI/Abdominal exam: PRESENT: normal bowel sounds, soft. ABSENT: mass, tenderness Musculoskeletal exam: PRESENT: ambulatory. ABSENT: deformity Neurological exam: PRESENT: alert, awake, oriented to person, oriented to place, oriented to time, oriented to situation Results Laboratory Results: 10/08/18 06:33 10/08/18 06:33 10/06/18 10/08/18 10/08/18 07:47 06:33 06:33 WBC 5.2 RBC 3.38 L Hgb 8.9 L Hct 26.4 L MCV 78 L MCH 26.2 L MCHC 33.6 RDW 15.8 H Plt Count 241 Seg Neutrophils % 77.4 Lymphocytes % 12.5 L Monocytes % 10.0 Eosinophils % 0.0 Basophils % 0.1 Absolute Neutrophils 4.1 Absolute Lymphocytes 0.7 Absolute Monocytes 0.5 Absolute Eosinophils 0.0 Absolute Basophils 0.0 Sodium 129.9 L Potassium 4.1 Chloride 93 L Carbon Dioxide 22 Anion Gap 15 BUN 61 H Creatinine 4.71 H Est GFR ( Amer) 11 L Est GFR (Non-Af Amer) 9 L Glucose 397 H Calcium 8.6 Total Protein 6.1 Albumin 3.0 10/04/18 10/04/18 10/04/18 13:10 13:10 14:15 Creatine Kinase Cancelled 101 CK-MB (CK-2) Cancelled Troponin I Cancelled 10/04/18 10/04/18 10/04/18 14:26 19:29 23:32 Creatine Kinase CK-MB (CK-2) 1.61 Troponin I 0.047 0.054 0.059 10/05/18 02:25 Creatine Kinase CK-MB (CK-2) Troponin I 0.055 Impressions: Chest X-Ray 10/04/18 12:56 IMPRESSION: Vascular congestion. Bilateral pleural effusions. Venous Doppler Study 10/04/18 12:56 IMPRESSION: NO EVIDENCE DVT OR SVT IN THE RIGHT LEG. Assessment & Plan - Diagnosis (1) Acute on chronic renal failure Qualifiers: Acute renal failure type: unspecified Chronic kidney disease stage: unspecified stage Qualified Code(s): N17.9 - Acute kidney failure, unspecified; N18.9 - Chronic kidney disease, unspecified Is this a current diagnosis for this admission?: Yes Plan: Continue to monitor renal function and electrolytes. Nephrology is following. (2) Bilateral lower extremity edema Is this a current diagnosis for this admission?: Yes Plan: Continue Lasix. Improved. (3) Congestive heart failure Is this a current diagnosis for this admission?: Yes Plan: Continue Lasix. Improved (4) Diabetes mellitus type 2 in nonobese Is this a current diagnosis for this admission?: Yes Plan: Continue current management. Monitor blood glucose. (5) Hypertension Is this a current diagnosis for this admission?: Yes Plan: Stable. Continue current medications. (6) Dyslipidemia Is this a current diagnosis for this admission?: Yes Plan: Due to current medications
[2018-10-08] MEDS ORDERED: 1/2 NORMAL SALINE 500 ML IV ONE (17:00)
[2018-10-08] MEDS: ATORVASTATIN CALCIUM 40 MG TABLET PO SCH (21:04)
[2018-10-08] MEDS: AMLODIPINE BESYLATE 5 MG TABLET PO SCH (21:05)
[2018-10-08] MEDS: INSULIN GLARGINE,HUM.REC.ANLOG 300 UNIT/3 ML INSULN.PEN SUBCUT SCH (23:18)
[2018-10-09 04:49] LABS: HEMATOCRIT 24.4 % (36.0-47.0); HEMOGLOBIN 8.3 g/dL (12.0-15.5); MEAN CORPUSCULAR HEMOGLOBIN 26.2 pg (27.0-33.4); MEAN CORPUSCULAR HGB CONC 34.1 g/dL (32.0-36.0); MEAN CORPUSCULAR VOLUME 77 fl (80-97); PLATELET COUNT 220 10^3/uL (150-450); RED BLOOD COUNT 3.19 10^6/uL (3.72-5.28); RED CELL DISTRIBUTION WIDTH 15.9 % (11.5-14.0); WHITE BLOOD COUNT 4.6 10^3/uL (4.0-10.5)
[2018-10-09 05:19] LABS: ANION GAP 9 (5-19); BLOOD UREA NITROGEN 59 mg/dL (7-20); CALCIUM 8.4 mg/dL (8.4-10.2); CARBON DIOXIDE 26 mmol/L (22-30); CHLORIDE 96 mmol/L (98-107); GLUCOSE 93 mg/dL (75-110); POTASSIUM 3.4 mmol/L (3.6-5.0); SODIUM 130.6 mmol/L (137-145)
[2018-10-09] MEDS: LEVOTHYROXINE SODIUM 0.112 MG TABLET PO SCH (05:36)
[2018-10-09] MEDS: LEVOTHYROXINE SODIUM 0.025 MG TABLET PO SCH (05:36)
[2018-10-09] MEDS: HYDRALAZINE HCL 50 MG TABLET PO SCH ×3 (05:36→21:33)
[2018-10-09] MEDS: HEPARIN SOD (PORCINE) 5,000 UNIT/ML 1 ML SYRINGE SUBCUT SCH ×3 (05:36→21:26)
--- NOTE | 2018-10-09 09:53 | PDOC PROGRESS REPORT ---
Subjective Progress Note for:: 10/09/18 Subjective:: Patient was seen and examined. She feels good. Edema resolved. She is breathing better. Creatinine is better at 4.3 Reason For Visit: HTN CRISIS, CASTRO, SWELLING Physical Exam Vital Signs: Temp Pulse Resp BP Pulse Ox 97.5 F 59 L 16 169/57 H 98 10/09/18 07:38 10/09/18 07:38 10/09/18 07:38 10/09/18 07:38 10/09/18 07:38 Intake & Output 10/08/18 10/09/18 10/10/18 06:59 06:59 06:59 Intake Total 666 2300 Balance 666 2300 Weight 203 lb 14.841 oz 203 lb 14.841 oz General appearance: PRESENT: no acute distress, cooperative Head exam: PRESENT: atraumatic, normocephalic Mouth exam: PRESENT: moist, neck supple Neck exam: ABSENT: meningismus, tenderness Respiratory exam: PRESENT: clear to auscultation lalitha. ABSENT: accessory muscle use Cardiovascular exam: PRESENT: RRR GI/Abdominal exam: PRESENT: normal bowel sounds, soft. ABSENT: tenderness Extremities exam: ABSENT: pedal edema Neurological exam: PRESENT: alert, awake, oriented to person, oriented to place, oriented to time, oriented to situation Results Laboratory Results: 10/09/18 04:23 10/09/18 04:23 10/09/18 10/09/18 04:23 04:23 WBC 4.6 RBC 3.19 L Hgb 8.3 L Hct 24.4 L MCV 77 L MCH 26.2 L MCHC 34.1 RDW 15.9 H Plt Count 220 Sodium 130.6 L Potassium 3.4 L Chloride 96 L Carbon Dioxide 26 Anion Gap 9 BUN 59 H Creatinine 4.31 H Est GFR ( Amer) 12 L Est GFR (Non-Af Amer) 10 L Glucose 93 Calcium 8.4 10/04/18 10/04/18 10/04/18 13:10 13:10 14:15 Creatine Kinase Cancelled 101 CK-MB (CK-2) Cancelled Troponin I Cancelled 10/04/18 10/04/18 10/04/18 14:26 19:29 23:32 Creatine Kinase CK-MB (CK-2) 1.61 Troponin I 0.047 0.054 0.059 10/05/18 02:25 Creatine Kinase CK-MB (CK-2) Troponin I 0.055 Impressions: Chest X-Ray 10/04/18 12:56 IMPRESSION: Vascular congestion. Bilateral pleural effusions. Venous Doppler Study 10/04/18 12:56 IMPRESSION: NO EVIDENCE DVT OR SVT IN THE RIGHT LEG. Assessment & Plan - Diagnosis (1) Acute on chronic renal failure Qualifiers: Acute renal failure type: unspecified Chronic kidney disease stage: unspecified stage Qualified Code(s): N17.9 - Acute kidney failure, unspecified; N18.9 - Chronic kidney disease, unspecified Is this a current diagnosis for this admission?: Yes Plan: Continue to monitor renal function and electrolytes. Nephrology is following. Creatinine improved at 4.3 today (2) Bilateral lower extremity edema Is this a current diagnosis for this admission?: Yes Plan: Continue Lasix. Resolved. (3) Congestive heart failure Is this a current diagnosis for this admission?: Yes Plan: Continue Lasix. Improved (4) Diabetes mellitus type 2 in nonobese Is this a current diagnosis for this admission?: Yes Plan: Continue current management. Monitor blood glucose. (5) Hypertension Is this a current diagnosis for this admission?: Yes Plan: Stable. Continue current medications. (6) Dyslipidemia Is this a current diagnosis for this admission?: Yes Plan: Continue current medications - Plan Summary Plan Summary: Monitor creatinine tomorrow. Possible discharge tomorrow if cleared by nephrology.
[2018-10-09] MEDS ORDERED: POTASSIUM CHLORIDE 10 MEQ CAPSULE.ER PO ONE (10:30)
[2018-10-09] MEDS: LOSARTAN POTASSIUM 50 MG TABLET PO SCH (10:44)
[2018-10-09] MEDS: ASPIRIN 325 MG TABLET, ENT COATED PO SCH (10:44)
[2018-10-09] MEDS: FAMOTIDINE 20 MG TABLET PO SCH ×2 (10:44→21:33)
[2018-10-09] MEDS: FUROSEMIDE 20 MG TABLET PO SCH (10:44)
[2018-10-09] MEDS: DOCUSATE SODIUM 100 MG CAPSULE PO SCH ×2 (10:46→17:46)
[2018-10-09] MEDS: AMLODIPINE BESYLATE 5 MG TABLET PO SCH (21:33)
[2018-10-09] MEDS: ATORVASTATIN CALCIUM 40 MG TABLET PO SCH (21:33)
[2018-10-09] MEDS: INSULIN GLARGINE,HUM.REC.ANLOG 300 UNIT/3 ML INSULN.PEN SUBCUT SCH (21:34)
[2018-10-10] MEDS: HEPARIN SOD (PORCINE) 5,000 UNIT/ML 1 ML SYRINGE SUBCUT SCH ×2 (05:12→14:35)
[2018-10-10] MEDS: HYDRALAZINE HCL 50 MG TABLET PO SCH ×2 (05:14→14:35)
[2018-10-10] MEDS: LEVOTHYROXINE SODIUM 0.025 MG TABLET PO SCH (05:15)
[2018-10-10] MEDS: LEVOTHYROXINE SODIUM 0.112 MG TABLET PO SCH (05:15)
[2018-10-10 05:21] LABS: ANION GAP 11 (5-19); BLOOD UREA NITROGEN 54 mg/dL (7-20); CALCIUM 8.5 mg/dL (8.4-10.2); CARBON DIOXIDE 25 mmol/L (22-30); CHLORIDE 98 mmol/L (98-107); GLUCOSE 203 mg/dL (75-110); POTASSIUM 3.9 mmol/L (3.6-5.0); SODIUM 133.5 mmol/L (137-145)
[2018-10-10] MEDS: DOCUSATE SODIUM 100 MG CAPSULE PO SCH ×2 (09:13→18:00)
[2018-10-10] MEDS: INSULIN LISPRO 100 UNIT/ML 3 ML VIAL SUBCUT PRN (09:14)
[2018-10-10] MEDS: FAMOTIDINE 20 MG TABLET PO SCH (09:14)
[2018-10-10] MEDS: LOSARTAN POTASSIUM 50 MG TABLET PO SCH (09:14)
[2018-10-10] MEDS: FUROSEMIDE 20 MG TABLET PO SCH (09:14)
[2018-10-10] MEDS: ASPIRIN 325 MG TABLET, ENT COATED PO SCH (09:14)
[2018-10-10] MEDS: HYDRALAZINE HCL INJ/PF 20 MG/1 ML SDV IV PRN (16:15)
--- NOTE | 2018-10-10 16:34 | PDOC DISCHARGE SUMMARY ---
General - Admit/Disc Date/PCP Admission Date/Primary Care Provider: 10/04/18 16:32 SRINIVASA BROWER Discharge Date: 10/10/18 - Discharge Diagnosis (1) Acute on chronic renal failure Is this a current diagnosis for this admission?: Yes (2) Bilateral lower extremity edema Is this a current diagnosis for this admission?: Yes (3) Congestive heart failure Is this a current diagnosis for this admission?: Yes (4) Diabetes mellitus type 2 in nonobese Is this a current diagnosis for this admission?: Yes (5) Hypertension Is this a current diagnosis for this admission?: Yes (6) Dyslipidemia Is this a current diagnosis for this admission?: Yes - Additional Information Resuscitation Status: Full Code Discharge Diet: As Tolerated, Diabetic, Other (Comments) Discharge Activity: Activity As Tolerated, Balance Activity w/Rest, Weigh Daily Prescriptions: Amlodipine Besylate [Norvasc 5 mg Tablet] 5 mg PO QHS #30 tablet Atorvastatin Calcium [Lipitor 40 mg Tablet] 40 mg PO QHS #30 tablet Furosemide [Lasix 20 mg Tablet] 20 mg PO DAILY #30 tablet Hydralazine HCl [Apresoline 50 mg Tablet] 75 mg PO Q8 #90 tablet Ipratropium/Albuterol Sulfate [Combivent Respimat 4 gm Mdi] 1 puff IH Q6 #1 aer.w.adap Losartan Potassium [Cozaar 50 mg Tablet] 100 mg PO DAILY #30 tablet Home Medications: Aspirin [Ecotrin 325 mg EC Tablet] 325 mg PO DAILY 10/04/18 Atenolol [Tenormin] 25 mg PO DAILY 10/04/18 Calcifediol [Rayaldee] 30 mg PO QHS 10/04/18 Diltiazem HCl [Diltiazem 24Hr ER] 300 mg PO QHS 10/04/18 Ferrous Sulfate [Feosol 325 mg Tablet] 325 mg PO DAILY 10/04/18 Insulin Aspart [Novolog Flexpen] 0 unit SQ .SLIDING SCALE 10/04/18 Insulin Glargine,Hum.rec.anlog [Lantus Insulin 100 Unit/mL] 14 units SQ QHS 10/04/18 Levothyroxine Sodium [Synthroid] 137 mcg PO Q6AM 10/04/18 Amlodipine Besylate [Norvasc 5 mg Tablet] 5 mg PO QHS #30 tablet 10/10/18 Atorvastatin Calcium [Lipitor 40 mg Tablet] 40 mg PO QHS #30 tablet 10/10/18 Furosemide [Lasix 20 mg Tablet] 20 mg PO DAILY #30 tablet 10/10/18 Hydralazine HCl [Apresoline 50 mg Tablet] 75 mg PO Q8 #90 tablet 10/10/18 Ipratropium/Albuterol Sulfate [Combivent Respimat 4 gm Mdi] 1 puff IH Q6 #1 aer.w.adap 10/10/18 Losartan Potassium [Cozaar 50 mg Tablet] 100 mg PO DAILY #30 tablet 10/10/18 History of Present Illness History of Present Illness: ARCHANA QUINN is a 73 year old female with a past medical history of hypertension, diabetes type 2, chronic anemia, who presented to the ED complaining of shortness of breath and lower extremity swelling. She is not a very good historian but son and daughter in the room did feel in for some of her information. Patient states for the last few days she has been getting progressively short of breath and also noticed some swelling in her lower extremity. Patient states she does not have a history of heart failure and she was not sure why her legs are getting swollen. She states that sometimes she does get short of breath when she lays down versus sitting up. She cannot admit or deny whether she coughs more with laying down. She denies any recent long trips in the car or plane. She denies any calf pain, chest pain, abdominal pain, nausea/vomiting or dizziness. She states that she takes all her medicines on time and has not missed any doses. She denies any excessive intake of water or salt intake. Although family states that she does like eating [employer] and salty food. She does take Lasix at home she tells me about 40 mg daily and she believes this is due to her lower extremity swelling from the past. She denies any history of heart failure. She does have a history of renal failure and follows with Dr. Bates Hospital Course Hospital Course: Patient was evaluated by nephrology. Initially she was diuresed very well. Renal function worsened and creatinine increased up to 4.7. Diuretics were cut back and creatinine improved to 3.9. She is asymptomatic. Edema resolved. Echocardiogram shows EF 45-50 %. Patient significantly improved. She is cleared for discharge. She should follow-up with cardiology and nephrology outpatient. She understands and she is follow-through. Medications adjusted. Physical Exam Vital Signs: Temp Pulse Resp BP Pulse Ox 97.7 F 62 16 174/68 H 95 10/10/18 11:34 10/10/18 11:34 10/10/18 11:34 10/10/18 11:34 10/10/18 11:34 Intake & Output 10/09/18 10/10/18 10/11/18 06:59 06:59 06:59 Intake Total 2300 1477 821 Balance 2300 1477 821 Weight 203 lb 14.841 oz 206 lb 12.697 oz General appearance: PRESENT: no acute distress, cooperative Head exam: PRESENT: atraumatic Mouth exam: PRESENT: moist, neck supple Neck exam: ABSENT: meningismus, tenderness Respiratory exam: PRESENT: clear to auscultation lalitha. ABSENT: accessory muscle use Cardiovascular exam: PRESENT: RRR Pulses: PRESENT: normal radial pulses GI/Abdominal exam: PRESENT: normal bowel sounds, soft. ABSENT: tenderness Rectal exam: PRESENT: deferred Extremities exam: ABSENT: joint swelling, pedal edema Neurological exam: PRESENT: alert, awake, oriented to person, oriented to place, oriented to time, oriented to situation Results Laboratory Results: 10/09/18 04:23 10/10/18 03:46 10/10/18 03:46 Sodium 133.5 L Potassium 3.9 Chloride 98 Carbon Dioxide 25 Anion Gap 11 BUN 54 H Creatinine 3.99 H Est GFR ( Amer) 13 L Est GFR (Non-Af Amer) 11 L Glucose 203 H Calcium 8.5 10/04/18 10/04/18 10/04/18 13:10 13:10 14:15 Creatine Kinase Cancelled 101 CK-MB (CK-2) Cancelled Troponin I Cancelled 10/04/18 10/04/18 10/04/18 14:26 19:29 23:32 Creatine Kinase CK-MB (CK-2) 1.61 Troponin I 0.047 0.054 0.059 10/05/18 02:25 Creatine Kinase CK-MB (CK-2) Troponin I 0.055 Impressions: Chest X-Ray 10/04/18 12:56 IMPRESSION: Vascular congestion. Bilateral pleural effusions. Venous Doppler Study 01/22/19 12:56 IMPRESSION: NO EVIDENCE DVT OR SVT IN THE RIGHT LEG. Qualifiers - * PATIENT BEING DISCHARGED WITH ANY OF THE FOLLOWING DIAGNOSIS: No
[2018-10-10 17:53] VITALS: BP 208/87
== END 2018-10-10 18:55 | disposition home or self-care (01) | DRG 305 ==
LOC: ER 11:49 → EH 16:32 → 5 21:14
PROVIDERS: ADMIT Internal Medicine; ATTEND Internal Medicine
PROC: B54BZZZ Ultrasonography of Right Lower Extremity Veins (ICD-10-PCS; principal; 2018-10-04)
DX: I16.1 Hypertensive emergency (principal); N17.9 Acute kidney failure, unspecified; E87.1 Hypo-osmolality and hyponatremia; N18.4 Chronic kidney disease, stage 4 (severe); N25.81 Secondary hyperparathyroidism of renal origin; I13.0 Hypertensive heart and chronic kidney disease with heart failure and stage 1 through stage 4 chronic kidney disease, or unspecified chronic kidney disease; E11.22 Type 2 diabetes mellitus with diabetic chronic kidney disease; I50.9 Heart failure, unspecified; E87.6 Hypokalemia; R19.7 Diarrhea, unspecified; D50.9 Iron deficiency anemia, unspecified; E78.5 Hyperlipidemia, unspecified; Z79.82 Long term (current) use of aspirin; Z79.899 Other long term (current) drug therapy; Z79.4 Long term (current) use of insulin; Z88.2 Allergy status to sulfonamides; Z88.1 Allergy status to other antibiotic agents
CPT/HCPCS: 36415; 71045; 80048; 80053; 80061; 82550; 82553; 82607; 82728; 82746; 82962; 83036; 83540; 83550; 83735; 84165; 84443; 84484; 85025; 85027; 85045; 93005; 93010; 93306; 93971; 96374; 99291; J0360; J1644; J1815; J1940; J2405

== ENCOUNTER → 2018-11-01 | Outpatient (CLI) | payer MEDICARE ==
[2018-11-01 13:28] LABS: ABSOLUTE LYMPHOCYTES (AUTO) 0.6 10^3/uL (0.5-4.7); ABSOLUTE MONOCYTES (AUTO) 0.5 10^3/uL (0.1-1.4); ABSOLUTE NEUT (AUTO) 2.8 10^3/uL (1.7-8.2); BASOPHILS % (AUTO) 0.2 % (0-2); HEMATOCRIT 28.9 % (36.0-47.0); HEMOGLOBIN 9.7 g/dL (12.0-15.5); LYMPHOCYTES % (AUTO) 16.1 % (13-45); MEAN CORPUSCULAR HEMOGLOBIN 25.8 pg (27.0-33.4); MEAN CORPUSCULAR HGB CONC 33.7 g/dL (32.0-36.0); MEAN CORPUSCULAR VOLUME 77 fl (80-97); MONOCYTES % (AUTO) 12.3 % (3-13); PLATELET COUNT 238 10^3/uL (150-450); RED BLOOD COUNT 3.77 10^6/uL (3.72-5.28); RED CELL DISTRIBUTION WIDTH 15.6 % (11.5-14.0); SEGMENTED NEUTROPHILS % (AUTO) 71.4 % (42-78); TOTAL CELLS COUNTED % (AUTO) 100 %; WHITE BLOOD COUNT 3.9 10^3/uL (4.0-10.5)
[2018-11-01 13:40] LABS: ALBUMIN 3.7 g/dL (3.5-5.0); ANION GAP 12 (5-19); BLOOD UREA NITROGEN 29 mg/dL (7-20); CALCIUM 8.8 mg/dL (8.4-10.2); CARBON DIOXIDE 25 mmol/L (22-30); CHLORIDE 98 mmol/L (98-107); GLUCOSE 224 mg/dL (75-110); IRON(TIBC) 29.8 ug/dL (37-170); PHOSPHORUS 3.7 mg/dL (2.5-4.5); POTASSIUM 3.1 mmol/L (3.6-5.0); SODIUM 135.3 mmol/L (137-145)
[2018-11-02 15:04] LABS: URINE CREATININE 178.2 mg/dL (15-278)
[2018-11-02 15:21] LABS: UR PRO/CREAT RATIO RESULT 3.1 mg/mg (0.0-0.2); URINE PROTEIN 549.7 mg/dL (<12)
== END ==
LOC: OD 12:43
PROVIDERS: ATTEND Internal Medicine Nephrology
DX: I12.0 Hypertensive chronic kidney disease with stage 5 chronic kidney disease or end stage renal disease (principal); N18.5 Chronic kidney disease, stage 5; E11.22 Type 2 diabetes mellitus with diabetic chronic kidney disease; D64.9 Anemia, unspecified
CPT/HCPCS: 36415; 80069; 82306; 82570; 82728; 83540; 83550; 83970; 84156; 85025